=== PATIENT | female | born 1980 | race Caucasian/White ===

== ENCOUNTER 2016-12-23 19:17 | Emergency (ER) | payer OTHER ==
[~2016-12-23] VITALS: Ht 167.6 cm; Wt 60.0 kg
[~2016-12-23 19:17] MED LIST: CYCL-36 PO; DIPH1TAB36 PO; IBUP800T23 PO; LORA1TAB PO; NAPR500 PO; PANT20 PO; PROP40TA3 PO; REST30CA PO; SERO300T2 PO
[2016-12-23 19:18] VITALS: BP 138/73; PULSE 60; RESP 16; TEMP 97.6; O2SAT 98
--- NOTE | 2016-12-23 21:27 | PD ---
HPI Chief Complaint: Psychiatric Symptoms Time Seen by Provider: 21:27 Travel History International Travel<30 days: No Contact w/Intl Traveler<30days: No Traveled to known affect area: No History of Present Illness HPI 36-year-old female with a history of bipolar disorder and borderline personality disorder presents to the emergency department for evaluation of suicidal ideations. The patient states that for the past 5 days her mood has been unstable and she has had multiple instances of contemplating suicide. States that 5 days ago she had planned to hang herself using an extension cord in her garage but was interrupted by neighbors. States that 3 weeks ago she and her psychiatrist changed her medication which is what has caused her mood to be imbalanced. States that she would like to be changed back to her previous medications or to something new that will work for her. She denies any ingestion of substances in an attempt to harm herself. Denies any drug use. Denies any alcohol use. Denies any medical complaints. Denies chest pain , shortness of breath, abdominal pain, nausea, vomiting, diarrhea. Denies , last menstrual period 1 week ago. No other complaints. PFSH Past Medical History Arthritis: No Asthma: No Autoimmune Disease: No Blood Disorders: No Bipolar Disorder: Yes Anxiety: Yes Depression: Yes Heart Rhythm Problems: Yes (SVT) Cancer: No Cardiovascular Problems: Yes (SVT) High Cholesterol: No Chemotherapy: No Chest Pain: No Congestive Heart Failure: No COPD: No Cerebrovascular Accident: No Diabetes: No Diminished Hearing: No Endocrine: Yes (pcos) Gastrointestinal Disorders: Yes (anorexia) Glaucoma: No Genitourinary: No Headaches: Yes Hypertension: No Kidney Stones: No Musculoskeletal: No Neurologic: No Psychiatric: Yes Reproductive: No Respiratory: No Myocardial Infarction: No Radiation Therapy: No Renal Failure: No Seizures: No Sickle Cell Disease: No Sleep Apnea: No Thyroid Disease: No ?: Not : 0 Past Surgical History Abdominal Surgery: No AICD: No Cardiac Surgery: No Ear Surgery: No Endocrine Surgery: No Eye Surgery: No Genitourinary Surgery: No Gynecologic Surgery: No Neurologic Surgery: No Oral Surgery: No Pacemaker: No Thoracic Surgery: No Other Surgery: Yes Social History Alcohol Use: No Tobacco Use: No Substance Use: No Allergies-Medications (Allergen,Severity, Reaction): Coded Allergies: Abilify (Verified Allergy, Severe, Confusion, 12/23/16) Geodon (Verified Allergy, Severe, Rash, 12/23/16) Morphine (Verified Allergy, Severe, "ILL", 12/23/16) Opiate Agonists (Narcotics) (Verified Allergy, Severe, 12/23/16) SSRI-Serotonin Reuptake Inhib (Verified Allergy, Severe, 12/23/16) Sulfa (Verified Allergy, Severe, RASH-HIVES, 12/23/16) Reported Meds & Prescriptions Reported Meds & Active Scripts Active Reported Seroquel (Quetiapine Fumarate) 400 Mg Tab 400 Mg PO HS Propranolol (Propranolol HCl) 40 Mg Tab 40 Mg PO HS Flexeril (Cyclobenzaprine HCl) 10 Mg Tab 10 Mg PO HS Adderall (Amphetamine-Dextroamphetamine) 7.5 Mg Tab 7.5 Mg PO BID Avoid late evening doses. Space doses at least 4 to 6 hours if more than once/day dosing. Review of Systems Except as stated in HPI: all other systems reviewed are Neg Physical Exam Narrative GENERAL: Well-nourished and well-developed pleasant female patient in no acute distress who is nontoxic appearing. SKIN: Warm and dry. HEAD: Normocephalic and atraumatic. EYES: No injection, drainage, or hyphema noted. PERRLA. EOMI. ENT: No nasal drainage noted. Oropharynx is clear. NECK: Supple and the trachea is midline. CARDIOVASCULAR: Regular rate and rhythm. RESPIRATORY: Breath sounds are equal bilaterally with no accessory muscle use, wheezing, rhonchi, or crackles. GASTROINTESTINAL: Abdomen is soft, non-tender, and nondistended. MUSCULOSKELETAL: No obvious deformities, swelling, cyanosis, or ecchymosis is present throughout the upper and lower extremities. Patient has full range of motion without any signs of neurovascular compromise. NEUROLOGICAL: Awake, alert, and oriented. Normal speech and gait. Cranial nerves are grossly intact. Data Data Last Documented VS Vital Signs Date Time Temp Pulse Resp B/P Pulse Ox O2 Delivery O2 Flow Rate FiO2 12/23/16 19:18 97.6 60 16 138/73 98 Orders Complete Blood Count With Diff (12/23/16 21:26) Comprehensive Metabolic Panel (12/23/16 21:26) Ed Urine Pregnancytest Poc (12/23/16 21:26) Drug Screen, Random Urine (12/23/16 21:26) Alcohol (Ethanol) (12/23/16 21:26) Olanzapine Inj (Zyprexa Inj) (12/23/16 21:30) Psych Screen (12/23/16 21:26) Labs Laboratory Tests Test 12/23/16 21:45 White Blood Count 7.2 TH/MM3 Red Blood Count 3.83 MIL/MM3 Hemoglobin 13.0 GM/DL Hematocrit 37.9 % Mean Corpuscular Volume 98.9 FL Mean Corpuscular Hemoglobin 33.9 PG Mean Corpuscular Hemoglobin 34.2 % Concent Red Cell Distribution Width 13.9 % Platelet Count 336 TH/MM3 Mean Platelet Volume 7.6 FL Neutrophils (%) (Auto) 55.8 % Lymphocytes (%) (Auto) 35.2 % Monocytes (%) (Auto) 5.5 % Eosinophils (%) (Auto) 2.6 % Basophils (%) (Auto) 0.9 % Neutrophils # (Auto) 4.0 TH/MM3 Lymphocytes # (Auto) 2.5 TH/MM3 Monocytes # (Auto) 0.4 TH/MM3 Eosinophils # (Auto) 0.2 TH/MM3 Basophils # (Auto) 0.1 TH/MM3 CBC Comment DIFF FINAL Differential Comment Sodium Level 140 MEQ/L Potassium Level 3.8 MEQ/L Chloride Level 103 MEQ/L Carbon Dioxide Level 30.1 MEQ/L Anion Gap 7 MEQ/L Blood Urea Nitrogen 10 MG/DL Creatinine 0.65 MG/DL Estimat Glomerular Filtration 104 ML/MIN Rate Random Glucose 76 MG/DL Calcium Level 9.0 MG/DL Total Bilirubin 0.4 MG/DL Aspartate Amino Transf 32 U/L (AST/SGOT) Alanine Aminotransferase 29 U/L (ALT/SGPT) Alkaline Phosphatase 72 U/L Total Protein 8.0 GM/DL Albumin 4.4 GM/DL Urine Opiates Screen NEG Urine Barbiturates Screen NEG Urine Amphetamines Screen POS Urine Benzodiazepines Screen NEG Urine Cocaine Screen NEG Urine Cannabinoids Screen NEG Ethyl Alcohol Level LESS THAN 3 MG/DL MDM Medical Decision Making Medical Screen Exam Complete: Yes Emergency Medical Condition: Yes Differential Diagnosis Differential: Depression versus adjustment reaction versus anxiety versus PTSD versus psychosis NOS versus mood disorder NOS versus substance induced mood disorder versus ODD versus adjustment reaction versus schizophrenia versus bipolar disorder versus schizoaffective versus electrolyte abnormality versus dementia versus malingering. Narrative Course Patient presents voluntarily for mood imbalances and suicidal ideations. Physical examination and vital signs are essentially unremarkable. Patient has no medical complaints to report. Psych screen has been ordered. The laboratory results are unremarkable. The patient is medically cleared for psychiatric evaluation and disposition. At this time the patient is voluntarily going to stay here and wait to see the psychiatrist. If at any point she decides to leave she should be placed under Adams act. The patient knows that this will happen and she is agreeable to stay voluntarily. Diagnosis Primary Impression: Suicidal ideations Additional Impression: Mood disorder Chelsy Adkins Dec 23, 2016 21:27
[2016-12-23] MEDS ORDERED: OLANZapine IM 10 MG VIAL IM ONE (21:30)
[2016-12-23] MEDS ORDERED: PROP40TA3 PO (21:45)
[2016-12-23] MEDS ORDERED: SERO400T PO (21:45)
[2016-12-23] MEDS ORDERED: CYCL1TAB29 PO (21:45)
[2016-12-23] MEDS ORDERED: AMPH1TAB40 PO (21:45)
[2016-12-23 22:01] LABS: BASOPHIL # 0.1 TH/MM3 (0-0.2); BASOPHIL % 0.9 % (0.0-2.0); EOSINOPHIL # 0.2 TH/MM3 (0-0.4); EOSINOPHIL % 2.6 % (0.0-4.0); HEMATOCRIT 37.9 % (35.0-46.0); HEMO FLAGS DIFF FINAL; LYMPH % 35.2 % (9.0-44.0); LYMPHOCYTE # 2.5 TH/MM3 (1.0-4.8); MEAN CELL VOLUME 98.9 FL (80.0-100.0); MEAN CORPUSCULAR HEMOGLOBIN 33.9 PG (27.0-34.0); MEAN CORPUSCULAR HGB CONC 34.2 % (32.0-36.0); MONO % 5.5 % (0.0-8.0); NEUT % 55.8 % (16.0-70.0); PLATELET COUNT 336 TH/MM3 (150-450); RED BLOOD COUNT 3.83 MIL/MM3 (4.00-5.30); RED CELL DISTRIBUTION WIDTH 13.9 % (11.6-17.2); WHITE BLOOD COUNT 7.2 TH/MM3 (4.0-11.0)
[2016-12-23 22:09] LABS: AMPHETAMINE, URINE POS (NEG); BARBITURATES, URINE NEG (NEG); COCAINE, URINE NEG (NEG)
[2016-12-23 22:29] LABS: ANION GAP 7 MEQ/L (5-15); AST (GOT) 32 U/L (15-37); BICARBONATE 30.1 MEQ/L (21.0-32.0); BLOOD UREA NITROGEN 10 MG/DL (7-18); CHLORIDE 103 MEQ/L (98-107); GLOMERULAR FILTRATION RATE 104 ML/MIN (>89); POTASSIUM 3.8 MEQ/L (3.5-5.1); SODIUM (NA) 140 MEQ/L (136-145)
[2016-12-23 22:32] LABS: ALKALINE PHOSPHATASE 72 U/L (45-117); ALT (GPT) 29 U/L (10-53); TOTAL BILIRUBIN ADULT 0.4 MG/DL (0.2-1.0)
[2016-12-24] VITALS: BP 130/68; PULSE 66; RESP 16; O2SAT 98
[2016-12-24 06:30] VITALS: BP 98/56; PULSE 88; PULSE 99; RESP 16; RESP 19; O2SAT 99
[2016-12-24] MEDS ORDERED: ACETAMINOPHEN 325 MG TAB PO ONE (08:45)
[2016-12-24] MEDS ORDERED: OLANZapine 10 MG TAB PO ONE (12:15)
[2016-12-24 14:20] VITALS: BP 107/64; PULSE 108; RESP 18; O2SAT 99
[2016-12-24] MEDS ORDERED: METO100T PO (14:37)
[2016-12-24] MEDS ORDERED: ADDE30XR PO (14:39)
[2016-12-24] MEDS ORDERED: SERO100T PO (14:41)
[2016-12-24] MEDS ORDERED: METOPROLOL TARTRATE 50 MG TAB PO ONE (17:15)
== END 2016-12-24 18:53 | disposition home or self-care (01) ==
LOC: NEPA 19:17 → NEPJ 12-24 18:53
DX: R45.851 Suicidal ideations (principal); F39 Unspecified mood [affective] disorder; Z86.59 Personal history of other mental and behavioral disorders; Z86.79 Personal history of other diseases of the circulatory system; Z87.42 Personal history of other diseases of the female genital tract; Z87.19 Personal history of other diseases of the digestive system
CPT/HCPCS: 80053; 80307; 80320; 84703; 85025; 96372

== ENCOUNTER 2017-01-17 17:32 | Observation (INO) | payer OTHER ==
[~2017-01-17] VITALS: Ht 167.6 cm; Wt 60.4 kg
[2017-01-17] VITALS (9 sets, daily range): BP systolic 91–141; BP diastolic 52–94; PULSE 65–98; RESP 14–24; TEMP 97.4–97.9; O2SAT 96–100
[~2017-01-17 17:32] MED LIST changes: +ADDE30XR PO; -CYCL-36 PO; +CYCL1TAB29 PO; -DIPH1TAB36 PO; -IBUP800T23 PO; -LORA1TAB PO; +METO100T PO; -NAPR500 PO; -PANT20 PO; -REST30CA PO; +SERO100T PO; -SERO300T2 PO
--- NOTE | 2017-01-17 18:32 | PD ---
HPI Chief Complaint: Psychiatric Symptoms Time Seen by Provider: 18:28 Travel History International Travel<30 days: No Contact w/Intl Traveler<30days: No Traveled to known affect area: No History of Present Illness HPI 36-year-old female that presents to the ED for evaluation of headache. Patient comes here voluntarily for refill of her medications. Per patient she ran out of his medications today but she feels that are not helping her. Per patient she feels very depressed and states that he. Without help she will "kill someone ". She is somewhat aggressive but we are able to redirect her. She denies any other medical problems. She does have a history of psychiatric illness in the past and has been here before for similar. She denies any medical complaints at this time. She states that she's been trying to get help for the past 3 days but "nobody will help her ". Denies any suicidal ideation but states that she will hurt someone if she doesn't get help. Symptoms appear to be severe. They seemed to have been worsening for the past couple days. PFSH Past Medical History Arthritis: No Asthma: No Autoimmune Disease: No Blood Disorders: No Bipolar Disorder: Yes Anxiety: Yes Depression: Yes Heart Rhythm Problems: Yes (SVT) Cancer: No Cardiovascular Problems: Yes (SVT) High Cholesterol: No Chemotherapy: No Chest Pain: No Congestive Heart Failure: No COPD: No Cerebrovascular Accident: No Diabetes: No Diminished Hearing: No Endocrine: Yes (pcos) Gastrointestinal Disorders: Yes (anorexia) Glaucoma: No Genitourinary: No Headaches: Yes Hypertension: No Kidney Stones: No Musculoskeletal: No Neurologic: No Psychiatric: Yes Reproductive: No Respiratory: No Immunizations Current: Yes Myocardial Infarction: No Radiation Therapy: No Renal Failure: No Seizures: No Sickle Cell Disease: No Sleep Apnea: No Thyroid Disease: No ?: Not : 0 Past Surgical History Abdominal Surgery: No AICD: No Cardiac Surgery: No Ear Surgery: No Endocrine Surgery: No Eye Surgery: No Genitourinary Surgery: No Gynecologic Surgery: No Neurologic Surgery: No Oral Surgery: No Pacemaker: No Thoracic Surgery: No Other Surgery: Yes Social History Alcohol Use: No Tobacco Use: No Substance Use: No Allergies-Medications (Allergen,Severity, Reaction): Coded Allergies: Sabrina (Verified Allergy, Severe, Confusion, 12/23/16) Geodon (Verified Allergy, Severe, Rash, 12/23/16) Morphine (Verified Allergy, Severe, "ILL", 12/23/16) Opiate Agonists (Narcotics) (Verified Allergy, Severe, 12/23/16) SSRI-Serotonin Reuptake Inhib (Verified Allergy, Severe, 12/23/16) Sulfa (Verified Allergy, Severe, RASH-HIVES, 12/23/16) Reported Meds & Prescriptions Reported Meds & Active Scripts Active Reported Metoprolol Tartrate 50 Mg Tab 50 Mg PO BID Zyprexa (Olanzapine) 10 Mg Tab 10 Mg PO HS Seroquel (Quetiapine Fumarate) 100 Mg Tab 100 Mg PO HS Adderall Xr 24 HR (Amphetamine/Dextroamphetamine) 30 Mg Cap 30 Mg PO DAILY Once daily in the morning. Propranolol (Propranolol HCl) 40 Mg Tab 40 Mg PO HS Flexeril (Cyclobenzaprine HCl) 10 Mg Tab 10 Mg PO HS Review of Systems Except as stated in HPI: all other systems reviewed are Neg Physical Exam Narrative GENERAL: SKIN: Warm and dry. HEAD: Atraumatic. Normocephalic. EYES: Pupils equal and round. No scleral icterus. No injection or drainage. ENT: No nasal bleeding or discharge. Mucous membranes pink and moist. tongue is midline, no uvula deviation. NECK: Trachea midline. No JVD. CARDIOVASCULAR: Regular rate and rhythm. No murmurs, S3, S4. RESPIRATORY: No accessory muscle use. Clear to auscultation. Breath sounds equal bilaterally. GASTROINTESTINAL: Abdomen soft, non-tender, nondistended. Hepatic and splenic margins not palpable. MUSCULOSKELETAL: Extremities without clubbing, cyanosis, or edema. No obvious deformities. Full range of motion of the upper and lower extremities bilaterally. 2+ pulses bilaterally. NEUROLOGICAL: Awake and alert. No obvious cranial nerve deficits. Motor grossly within normal limits. Five out of 5 muscle strength in the arms and legs. Normal speech. PSYCHIATRIC: Anxious and somewhat agitated mood and affect; insight and judgment questionable Data Data Last Documented VS Vital Signs Date Time Temp Pulse Resp B/P Pulse Ox O2 Delivery O2 Flow Rate FiO2 01/17/17 21:35 70 14 91/58 100 Room Air 01/17/17 18:30 97.4 Orders Complete Blood Count With Diff (01/17/17 18:08) Comprehensive Metabolic Panel (01/17/17 18:08) Psych Screen (01/17/17 18:08) Drug Screen, Random Urine (01/17/17 18:08) Olanzapine Inj (Zyprexa Inj) (01/17/17 18:45) Lorazepam Inj (Ativan Inj) (01/17/17 18:45) Restraints Violent (01/17/17 19:08) Electrocardiogram (01/17/17 19:32) Iv Access Insert/Monitor (01/17/17 19:32) Ecg Monitoring (01/17/17 19:32) Oximetry (01/17/17 19:32) Iv Access Insert/Monitor (01/17/17 20:16) Sodium Chlor 0.9% 1000 Ml Inj (Ns 1000 M (01/17/17 20:16) Sodium Chlor 0.9% 1000 Ml Inj (Ns 1000 M (01/17/17 22:00) Ed Urine Pregnancytest Poc (01/17/17 21:59) Alcohol (Ethanol) (01/17/17 21:59) Salicylates (Aspirin) (01/17/17 21:59) Tylenol (Acetaminophen) (01/17/17 21:59) Admit Order (Ed Use Only) (01/17/17 22:09) Consult Psychiatry (01/17/17 ) Labs Laboratory Tests Test 01/17/17 18:50 White Blood Count 6.7 TH/MM3 Red Blood Count 3.84 MIL/MM3 Hemoglobin 12.9 GM/DL Hematocrit 37.9 % Mean Corpuscular Volume 98.9 FL Mean Corpuscular Hemoglobin 33.7 PG Mean Corpuscular Hemoglobin 34.1 % Concent Red Cell Distribution Width 13.8 % Platelet Count 317 TH/MM3 Mean Platelet Volume 7.8 FL Neutrophils (%) (Auto) 48.3 % Lymphocytes (%) (Auto) 40.4 % Monocytes (%) (Auto) 6.8 % Eosinophils (%) (Auto) 3.8 % Basophils (%) (Auto) 0.7 % Neutrophils # (Auto) 3.2 TH/MM3 Lymphocytes # (Auto) 2.7 TH/MM3 Monocytes # (Auto) 0.5 TH/MM3 Eosinophils # (Auto) 0.3 TH/MM3 Basophils # (Auto) 0.0 TH/MM3 CBC Comment DIFF FINAL Differential Comment Sodium Level 139 MEQ/L Potassium Level 4.3 MEQ/L Chloride Level 104 MEQ/L Carbon Dioxide Level 30.4 MEQ/L Anion Gap 5 MEQ/L Blood Urea Nitrogen 10 MG/DL Creatinine 0.94 MG/DL Estimat Glomerular Filtration 68 ML/MIN Rate Random Glucose 100 MG/DL Calcium Level 9.1 MG/DL Total Bilirubin 0.2 MG/DL Aspartate Amino Transf 28 U/L (AST/SGOT) Alanine Aminotransferase 34 U/L (ALT/SGPT) Alkaline Phosphatase 68 U/L Total Protein 7.8 GM/DL Albumin 4.1 GM/DL MDM Medical Decision Making Medical Screen Exam Complete: Yes Emergency Medical Condition: Yes Medical Record Reviewed: Yes Interpretation(s) CBC & BMP Diagram 01/17/17 18:50 Differential Diagnosis Depression versus suicidal ideation versus anxiety versus adjustment disorder versus mood disorder versus bipolar disorder versus schizophrenia versus paranoid disorder versus psychosis versus substance abuse versus alcohol abuse versus alcohol induced psychosis versus homicidality addition versus cutting versus personality disorder Narrative Course 36-year-old female that presents to the ED for evaluation of psych. Patient was properly examined and was found to have signs and symptoms consistent with significant illness. Patient does appear to be very agitated. Labs were ordered. Patient was given IM medications to calm her down. Around 7:30 PM I was told by psych nurse that apparently had an incident where the patient was found to have hitting some of her medications in a septal up back on her underwear and apparently one of the techs noticed that she had this and apparently she put this in her mouth and possibly ingested some of his medications before the techs could stop her. Unclear as to how many she took. Patient had to be restrained and had to be medicated. From the type of pills he appears to this his metoprolol tartrate 50 mg which is prescribed to her. Unclear if she took any of them. Because of this recommendation is for patient to be moved from the psychiatric unit to a medical bed to get monitored for her possible overdose of metoprolol. This was discussed in my attending Dr. Andres who agrees with plan. EKG was ordered in addition to regular blood work. Labs and imaging were essentially unremarkable. Heart rate has been stable. My attending Dr. Andres spoke with poison control who recommends observation for the next 6-8 hours. If no changes patient can be cleared. This was discussed with the [facility] Dr. Garcia who agrees to admission for WITH consult to psychiatry. Diagnosis Primary Impression: Mood disorder Additional Impression: Suicide attempt by beta [place] overdose Qualified Code: T44.7X2A - Suicide attempt by beta [place] overdose, initial encounter Suhail Welch Jan 17, 2017 18:32
[2017-01-17] MEDS ORDERED: LORazepam 2 MG/ML VIAL IM ONE (18:45)
[2017-01-17] MEDS ORDERED: OLANZapine IM 10 MG VIAL IM ONE (18:45)
[2017-01-17 19:22] LABS: AUTOMATED NEUTROPHIL # 3.2 TH/MM3 (1.8-7.7); BASOPHIL % 0.7 % (0.0-2.0); EOSINOPHIL # 0.3 TH/MM3 (0-0.4); EOSINOPHIL % 3.8 % (0.0-4.0); HEMATOCRIT 37.9 % (35.0-46.0); HEMO FLAGS DIFF FINAL; LYMPH % 40.4 % (9.0-44.0); LYMPHOCYTE # 2.7 TH/MM3 (1.0-4.8); MEAN CELL VOLUME 98.9 FL (80.0-100.0); MEAN CORPUSCULAR HEMOGLOBIN 33.7 PG (27.0-34.0); MEAN CORPUSCULAR HGB CONC 34.1 % (32.0-36.0); MONO % 6.8 % (0.0-8.0); NEUT % 48.3 % (16.0-70.0); PLATELET COUNT 317 TH/MM3 (150-450); RED BLOOD COUNT 3.84 MIL/MM3 (4.00-5.30); RED CELL DISTRIBUTION WIDTH 13.8 % (11.6-17.2); WHITE BLOOD COUNT 6.7 TH/MM3 (4.0-11.0)
[2017-01-17] MEDS ORDERED: ZYPR10TA PO (19:24)
[2017-01-17 19:40] LABS: ANION GAP 5 MEQ/L (5-15); AST (GOT) 28 U/L (15-37); BICARBONATE 30.4 MEQ/L (21.0-32.0); BLOOD UREA NITROGEN 10 MG/DL (7-18); CHLORIDE 104 MEQ/L (98-107); GLOMERULAR FILTRATION RATE 68 ML/MIN (>89); POTASSIUM 4.3 MEQ/L (3.5-5.1); SODIUM (NA) 139 MEQ/L (136-145)
[2017-01-17 19:44] LABS: ALKALINE PHOSPHATASE 68 U/L (45-117); ALT (GPT) 34 U/L (10-53); TOTAL BILIRUBIN ADULT 0.2 MG/DL (0.2-1.0)
[2017-01-17] MEDS ORDERED: SODIUM CHLOR 0.9% 1000 ML INJ 1,000 ML IV ONE (20:16)
--- NOTE | 2017-01-17 21:43 | PD ---
Physical Exam Narrative Patient was seen and examined with my therapist's assistant. Patient took a mouth full of metoprolol, up to 35 tablets of metoprolol 50 mg each tablet at the round 1914 p.m. Data Data Last Documented VS Vital Signs Date Time Temp Pulse Resp B/P Pulse Ox O2 Delivery O2 Flow Rate FiO2 01/17/17 21:35 70 14 91/58 100 Room Air 01/17/17 18:30 97.4 Orders Complete Blood Count With Diff (01/17/17 18:08) Comprehensive Metabolic Panel (01/17/17 18:08) Psych Screen (01/17/17 18:08) Drug Screen, Random Urine (01/17/17 18:08) Olanzapine Inj (Zyprexa Inj) (01/17/17 18:45) Lorazepam Inj (Ativan Inj) (01/17/17 18:45) Restraints Violent (01/17/17 19:08) Electrocardiogram (01/17/17 19:32) Iv Access Insert/Monitor (01/17/17 19:32) Ecg Monitoring (01/17/17 19:32) Oximetry (01/17/17 19:32) Iv Access Insert/Monitor (01/17/17 20:16) Sodium Chlor 0.9% 1000 Ml Inj (Ns 1000 M (01/17/17 20:16) Labs Laboratory Tests Test 01/17/17 18:50 White Blood Count 6.7 TH/MM3 Red Blood Count 3.84 MIL/MM3 Hemoglobin 12.9 GM/DL Hematocrit 37.9 % Mean Corpuscular Volume 98.9 FL Mean Corpuscular Hemoglobin 33.7 PG Mean Corpuscular Hemoglobin 34.1 % Concent Red Cell Distribution Width 13.8 % Platelet Count 317 TH/MM3 Mean Platelet Volume 7.8 FL Neutrophils (%) (Auto) 48.3 % Lymphocytes (%) (Auto) 40.4 % Monocytes (%) (Auto) 6.8 % Eosinophils (%) (Auto) 3.8 % Basophils (%) (Auto) 0.7 % Neutrophils # (Auto) 3.2 TH/MM3 Lymphocytes # (Auto) 2.7 TH/MM3 Monocytes # (Auto) 0.5 TH/MM3 Eosinophils # (Auto) 0.3 TH/MM3 Basophils # (Auto) 0.0 TH/MM3 CBC Comment DIFF FINAL Differential Comment Sodium Level 139 MEQ/L Potassium Level 4.3 MEQ/L Chloride Level 104 MEQ/L Carbon Dioxide Level 30.4 MEQ/L Anion Gap 5 MEQ/L Blood Urea Nitrogen 10 MG/DL Creatinine 0.94 MG/DL Estimat Glomerular Filtration 68 ML/MIN Rate Random Glucose 100 MG/DL Calcium Level 9.1 MG/DL Total Bilirubin 0.2 MG/DL Aspartate Amino Transf 28 U/L (AST/SGOT) Alanine Aminotransferase 34 U/L (ALT/SGPT) Alkaline Phosphatase 68 U/L Total Protein 7.8 GM/DL Albumin 4.1 GM/DL MDM Supervised Visit with INOCENCIO: Yes Narrative Course I spoke with poison control at 21:40 PM. Advised IV fluids and observation. Atropine and glucagon as needed. Diagnosis Primary Impression: Mood disorder Additional Impression: Suicide attempt by beta [place] overdose Qualified Code: T44.7X2A - Suicide attempt by beta [place] overdose, initial encounter Shayan Andres MD Jan 17, 2017 21:43
[2017-01-17] MEDS ORDERED: METO50TA PO (21:51)
[2017-01-17] MEDS ORDERED: SODIUM CHLOR 0.9% 1000 ML INJ 1,000 ML IV SCH (22:00)
[2017-01-17 23:06] LABS: ACETAMINOPHEN LESS THAN 2.0 MCG/ML (10.0-30.0)
[2017-01-17] MEDS ORDERED: SODIUM CHLOR 0.45% 1000 ML INJ 1,000 ML IV SCH (23:18)
--- NOTE | 2017-01-17 23:18 | HHI.HP ---
HPI Service [facility] Hospitalists Primary Care Physician Liya Waters MD Admission Diagnosis metoprolol overdose, suicidal, mood disorder Chief Complaint: possibly took overdose metoprolol Travel History International Travel<30 Days: No Contact w/Intl Traveler <30 Da: No Traveled to Known Affected Are: No History of Present Illness 36-year-old female that presents to the ED for evaluation of headache. Patient comes here voluntarily for refill of her medications. Per patient she ran out of his medications today but she feels that are not helping her. Per patient she feels very depressed and states that he. Without help she will "kill someone ". She is somewhat aggressive but we are able to redirect her. She denies any other medical problems. She does have a history of psychiatric illness in the past and has been here before for similar. She denies any medical complaints at this time. She states that she's been trying to get help for the past 3 days but "nobody will help her ". Denies any suicidal ideation but states that she will hurt someone if she doesn't get help. Symptoms appear to be severe. They seemed to have been worsening for the past couple She stated she took many of her metoprolol which she has for SVT. Case discussed with poison control recomend observation and IV fluid. Will also get Psy consult. Review of Systems ROS Limitations: Altered Mental Status Psychiatric: COMPLAINS OF: Anxiety, Agitation, Suicidal Ideation Past Family Social History Past Medical History ADD,PSY disorder,SVT Reported Medications Metoprolol Tartrate 50 Mg Tab 50 Mg PO BID Zyprexa (Olanzapine) 10 Mg Tab 10 Mg PO HS Seroquel (Quetiapine Fumarate) 100 Mg Tab 100 Mg PO HS Adderall Xr 24 HR (Amphetamine/Dextroamphetamine) 30 Mg Cap 30 Mg PO DAILY Once daily in the morning. Propranolol (Propranolol HCl) 40 Mg Tab 40 Mg PO HS Flexeril (Cyclobenzaprine HCl) 10 Mg Tab 10 Mg PO HS Allergies: Coded Allergies: Abilify (Verified Allergy, Severe, Confusion, 12/23/16) Geodon (Verified Allergy, Severe, Rash, 12/23/16) Morphine (Verified Allergy, Severe, "ILL", 12/23/16) Opiate Agonists (Narcotics) (Verified Allergy, Severe, 12/23/16) SSRI-Serotonin Reuptake Inhib (Verified Allergy, Severe, 12/23/16) Sulfa (Verified Allergy, Severe, RASH-HIVES, 12/23/16) Social History unable to provide information Physical Exam Vital Signs Vital Signs Date Time Temp Pulse Resp B/P Pulse Ox O2 Delivery O2 Flow Rate FiO2 01/17/17 22:20 75 14 95/53 97 Room Air 01/17/17 21:35 70 14 91/58 100 Room Air 01/17/17 21:14 65 14 101/52 100 Room Air 01/17/17 20:51 73 18 104/60 01/17/17 20:16 75 18 97/53 01/17/17 19:47 88 20 101/52 100 01/17/17 18:40 98 24 01/17/17 18:30 97.4 98 24 141/94 98 01/17/17 17:33 97.9 91 20 139/69 99 Room Air Physical Exam GENERAL: This is a well-nourished, well-developed patient, in no apparent distress. SKIN: No rashes, ecchymoses or lesions. Cool and dry. HEAD: Atraumatic. Normocephalic. No temporal or scalp tenderness. EYES: Pupils equal round and reactive. Extraocular motions intact. No scleral icterus. No injection or drainage. ENT: Nose without bleeding, purulent drainage or septal hematoma. Throat without erythema, tonsillar hypertrophy or exudate. Uvula midline. Airway patent. NECK: Trachea midline. No JVD or lymphadenopathy. Supple, nontender, no meningeal signs. CARDIOVASCULAR: Regular rate and rhythm without murmurs, gallops, or rubs. RESPIRATORY: Clear to auscultation. Breath sounds equal bilaterally. No wheezes , rales, or rhonchi. GASTROINTESTINAL: Abdomen soft, non-tender, nondistended. No hepato-splenomegaly , or palpable masses. No guarding. MUSCULOSKELETAL: Extremities without clubbing, cyanosis, or edema. No joint tenderness, effusion, or edema noted. No calf tenderness. Negative Homans sign bilaterally. NEUROLOGICAL: Asleep. Cranial nerves II through XII intact. Motor and sensory grossly within normal limits. Five out of 5 muscle strength in all muscle groups. Normal speech. Laboratory Laboratory Tests Test 01/17/17 18:50 White Blood Count 6.7 Red Blood Count 3.84 Hemoglobin 12.9 Hematocrit 37.9 Mean Corpuscular Volume 98.9 Mean Corpuscular Hemoglobin 33.7 Mean Corpuscular Hemoglobin 34.1 Concent Red Cell Distribution Width 13.8 Platelet Count 317 Mean Platelet Volume 7.8 Neutrophils (%) (Auto) 48.3 Lymphocytes (%) (Auto) 40.4 Monocytes (%) (Auto) 6.8 Eosinophils (%) (Auto) 3.8 Basophils (%) (Auto) 0.7 Neutrophils # (Auto) 3.2 Lymphocytes # (Auto) 2.7 Monocytes # (Auto) 0.5 Eosinophils # (Auto) 0.3 Basophils # (Auto) 0.0 CBC Comment DIFF FINAL Differential Comment Sodium Level 139 Potassium Level 4.3 Chloride Level 104 Carbon Dioxide Level 30.4 Anion Gap 5 Blood Urea Nitrogen 10 Creatinine 0.94 Estimat Glomerular Filtration 68 Rate Random Glucose 100 Calcium Level 9.1 Total Bilirubin 0.2 Aspartate Amino Transf 28 (AST/SGOT) Alanine Aminotransferase 34 (ALT/SGPT) Alkaline Phosphatase 68 Total Protein 7.8 Albumin 4.1 Result Diagram: 01/17/17184901/17/171849 Course in er received IV fluid Assessment and Plan Problem List: (1) Suicide attempt by beta [place] overdose Status: Acute Plan: may have taken several metoprolol poison control recommends IV fluid patient was agitated and received zyprexa and ativan and is sleeping (2) SVT (supraventricular tachycardia) Status: Chronic Plan: hold meds b blockers for now monitor heart rate Assessment and Plan as above Code Status full Discussed Condition With er physician patient sleeping with sitter in room Problem Qualifiers (1) Suicide attempt by beta [place] overdose: Qualified Code: T44.7X2A - Suicide attempt by beta [place] overdose, initial encounter Amrik Garcia MD Jan 17, 2017 23:18
[2017-01-17] MEDS ORDERED: NALOXONE HCL 0.4 MG/ML AMP IV PRN (23:30)
[2017-01-17] MEDS ORDERED: SODIUM CHLORIDE 0.9% FLUSH 10 ML FLUSH IV FLUSH PRN (23:30)
[2017-01-18 00:30] VITALS: BP 100/58; PULSE 70; RESP 16; TEMP 97.7; O2SAT 96
[2017-01-18] MEDS ORDERED: LORazepam 1 MG TAB PO ONE (02:30)
[2017-01-18 08:00] VITALS: BP 104/57; PULSE 72; RESP 18; TEMP 97.9; O2SAT 95
[2017-01-18] MEDS ORDERED: QUEtiapine FUMARATE 100 MG TAB PO ONE (09:00)
[2017-01-18] MEDS ORDERED: SODIUM CHLORIDE 0.9% FLUSH 10 ML FLUSH IV FLUSH SCH (09:00)
[2017-01-18] MEDS ORDERED: DEXTROAMPHETAMINE/AMPHETAMINE XR 30 MG CAP PO SCH (09:00)
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
--- NOTE | 2017-01-18 10:11 | HHI.PR ---
Subjective Remarks pt demanding to go home psychiatrist agrees with her d/c. Objective Vitals lying in bed oriented cooperative with me. Vital Signs Date Time Temp Pulse Resp B/P Pulse Ox O2 Delivery O2 Flow Rate FiO2 01/18/17 08:00 97.9 72 18 104/57 95 01/18/17 00:31 Room Air 01/18/17 00:30 97.7 70 16 100/58 96 01/17/17 23:55 73 14 95/54 96 Room Air 01/17/17 22:20 75 14 95/53 97 Room Air 01/17/17 21:35 70 14 91/58 100 Room Air 01/17/17 21:14 65 14 101/52 100 Room Air 01/17/17 20:51 73 18 104/60 01/17/17 20:16 75 18 97/53 01/17/17 19:47 88 20 101/52 100 01/17/17 18:40 98 24 01/17/17 18:30 97.4 98 24 141/94 98 01/17/17 17:33 97.9 91 20 139/69 99 Room Air 01/17/17 01/17/17 01/18/17 15:00 23:00 07:00 Intake Total 240 ml Output Total 800 ml Balance -560 ml Intake Oral 240 ml Output Urine Total 800 ml # Bowel Movements 0 Result Diagram: 01/17/17184901/17/171849 A/P Problem List: (1) Mood disorder Status: Acute Plan: I am told by psychiatrist she has borderline personality was apparently seeking medications last night in ED. also report that she had medication hidden in her underwear possibly metoprolol and took those in ED. She was observed overnight after being restrained. Long discussion with Dr Patterson who saw her and also spoke with her regular psychiatrist. no plan to give this pt any medication prescriptions as she is very manipulative. Pt says she will continue to take both metoprolol and propranolol as prescribed by dr Borrego and Dr Hernández. She says they are aware and ok with the combination. d/c home. . (2) SVT (supraventricular tachycardia) Status: Chronic Plan: see above Gerry Paulino MD Jan 18, 2017 10:11
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
--- NOTE | 2017-01-18 16:28 | EKG ---
Date Performed: 01/17/2017 Time Performed: 21:25:57 PTAGE: 36 years EKG: SINUS BRADYCARDIA Since previous tracing, no significant change noted BORDERLINE ECG PREVIOUS TRACING : 08/25/2014 16.41 DOCTOR: Balwinder Castillo Interpretating Date/Time 01/18/2017 16:26:55
--- NOTE | 2017-01-18 16:28 | EKG ---
Date Performed: 01/18/2017 Time Performed: 04:03:24 PTAGE: 36 years EKG: Sinus rhythm Since previous tracing, no significant change noted Normal ECG PREVIOUS TRACING : 08/25/2014 16.41 DOCTOR: Balwinder Castillo Interpretating Date/Time 01/18/2017 16:26:18
== END 2017-01-18 10:38 | disposition home or self-care (01) ==
LOC: NEPJ 17:32 → NEDA 22:12 → N04B 01-18 00:39
PROVIDERS: ADMIT Hospitalist; ATTEND Hospitalist
DX: T44.7X2A Poisoning by beta-adrenoreceptor antagonists, intentional self-harm, initial encounter (principal); I47.1 Supraventricular tachycardia; F43.10 Post-traumatic stress disorder, unspecified; F31.9 Bipolar disorder, unspecified; R63.0 Anorexia; R51 Headache; R45.1 Restlessness and agitation; F90.9 Attention-deficit hyperactivity disorder, unspecified type; F63.9 Impulse disorder, unspecified; F60.3 Borderline personality disorder; Z86.59 Personal history of other mental and behavioral disorders
CPT/HCPCS: 80053; 80307; 85025; 93005; 96372; 99285; G0378; J7030

== ENCOUNTER 2017-01-20 16:31 | Observation (INO) | payer OTHER ==
[~2017-01-20] VITALS: Ht 167.6 cm; Wt 75.0 kg
[~2017-01-20 16:31] MED LIST changes: -METO100T PO; +METO50TA PO; +ZYPR10TA PO
[2017-01-20 16:35] VITALS: BP 95/56; PULSE 81; RESP 13; O2SAT 93
[2017-01-20] MEDS ORDERED: SODIUM CHLORIDE 0.9% FLUSH 10 ML FLUSH IVF PRN (16:45)
[2017-01-20] MEDS ORDERED: SODIUM CHLOR 0.9% 1000 ML INJ 1,000 ML IV ONE ×2 (16:45→21:30)
[2017-01-20 16:49] VITALS: BP 95/56; PULSE 85; RESP 20; O2SAT 100
[2017-01-20 17:15] LABS: BLOOD GAS BASE EXCESS -0.5 mmol/L (-2-2); BLOOD GAS CARBOXYHEMOGLOBIN 7.5 % (0-4); BLOOD GAS HCO3 24 mmol/L (22-26); BLOOD GAS METHEMOGLOBIN 1.6 % (0-2); BLOOD GAS O2 HGB SATURATION 90 % (90-100); BLOOD GAS OXYGEN CONTENT 16.1 Vol % (12.0-20.0); BLOOD GAS PCO2 38 mmHg (38-42); BLOOD GAS PO2 131 mmHg (61-120); BLOOD GAS TOTAL HGB 12.6 G/DL (12.0-16.0); TEMP CORR TO 98.6
[2017-01-20 17:16] LABS: CRITICAL VALUE YES; DRAW SITE RT RADIAL; FIO2 28 %; LITER FLOW 2 L/M; NUMBER OF ARTERIAL PUNCTURES 1; OXYGEN DEVICE NASAL CANNULA; STAT YES; ULNAR PULSE PRESENT
--- NOTE | 2017-01-20 17:20 | PD ---
HPI Chief Complaint: OD/ Ingestion Time Seen by Provider: 16:45 Travel History International Travel<30 days: No Contact w/Intl Traveler<30days: No Traveled to known affect area: No History of Present Illness HPI Patient is a 36-year-old female brought into the emergency department by EMS after tented overdose. Patient was found sitting in her car with a hose from the tailpipe into the car with the window sealed off. Patient states that she took a handful of Benadryl, a handful of Tylenol PM, and most of her trazodone 100 mg prescription. Patient missed to attempting suicide, she reports a history of attempted suicide most recently 2 days ago. She denies any chest pain, shortness of breath, nausea, vomiting, abdominal pain this time. PFSH Past Medical History Arthritis: No Asthma: No Autoimmune Disease: No Blood Disorders: No Bipolar Disorder: Yes (MANIC) Anxiety: Yes Depression: Yes Heart Rhythm Problems: Yes (SVT) Cancer: No Cardiovascular Problems: Yes (SVT) High Cholesterol: No Chemotherapy: No Chest Pain: No Congestive Heart Failure: No COPD: No Cerebrovascular Accident: No Diabetes: No Diminished Hearing: No Endocrine: Yes (pcos) Gastrointestinal Disorders: Yes (anorexia) Glaucoma: No Genitourinary: No Headaches: Yes Hypertension: Yes Kidney Stones: No Musculoskeletal: No Neurologic: No Psychiatric: Yes Reproductive: No Respiratory: No Immunizations Current: Yes Myocardial Infarction: No Radiation Therapy: No Renal Failure: No Seizures: No Sickle Cell Disease: No Sleep Apnea: No Thyroid Disease: No ?: Not LMP: last week : 0 Past Surgical History Abdominal Surgery: No AICD: No Cardiac Surgery: No Ear Surgery: No Endocrine Surgery: No Eye Surgery: No Genitourinary Surgery: No Gynecologic Surgery: No Neurologic Surgery: No Oral Surgery: No Pacemaker: No Thoracic Surgery: No Other Surgery: Yes Social History Alcohol Use: No Tobacco Use: No Substance Use: No Allergies-Medications (Allergen,Severity, Reaction): Coded Allergies: Abilify (Verified Allergy, Severe, Confusion, 01/20/17) Geodon (Verified Allergy, Severe, Rash, 01/20/17) Morphine (Verified Allergy, Severe, "ILL", 01/20/17) Opiate Agonists (Narcotics) (Verified Allergy, Severe, 01/20/17) SSRI-Serotonin Reuptake Inhib (Verified Allergy, Severe, 01/20/17) Sulfa (Verified Allergy, Severe, RASH-HIVES, 01/20/17) Reported Meds & Prescriptions Reported Meds & Active Scripts Active Reported Metoprolol Tartrate 50 Mg Tab 50 Mg PO BID Zyprexa (Olanzapine) 10 Mg Tab 10 Mg PO HS Seroquel (Quetiapine Fumarate) 100 Mg Tab 100 Mg PO HS Adderall Xr 24 HR (Amphetamine/Dextroamphetamine) 30 Mg Cap 30 Mg PO DAILY Once daily in the morning. Propranolol (Propranolol HCl) 40 Mg Tab 40 Mg PO HS Flexeril (Cyclobenzaprine HCl) 10 Mg Tab 10 Mg PO HS Review of Systems ROS Limitations: Clinical Condition Except as stated in HPI: all other systems reviewed are Neg Cardiovascular: No: Chest Pain or Discomfort Respiratory: No: Shortness of Breath Gastrointestinal: No: Nausea, Abdominal Pain Psychiatric: Positive: Depression, Suicidal Ideations, Substance Abuse Physical Exam Narrative GENERAL: Thin, well-developed, female. Drowsy, in no acute distress. SKIN: Focused skin assessment warm/dry. HEAD: Atraumatic. Normocephalic. EYES: Pupils equal and round. No scleral icterus. No injection or drainage. ENT: No nasal bleeding or discharge. Mucous membranes pink and moist. NECK: Trachea midline. No JVD. CARDIOVASCULAR: Regular rate and rhythm. No murmur appreciated. RESPIRATORY: No accessory muscle use. Clear to auscultation. Breath sounds equal bilaterally. GASTROINTESTINAL: Abdomen soft, non-tender, nondistended. Hepatic and splenic margins not palpable. MUSCULOSKELETAL: No obvious deformities. No clubbing. No cyanosis. No edema. NEUROLOGICAL: Drowsy, arousable, answers questions appropriately.. No obvious cranial nerve deficits. Motor grossly within normal limits. Normal speech. PSYCHIATRIC: Depressed mood and affect; insight and judgment. Impaired. Data Data Last Documented VS Vital Signs Date Time Temp Pulse Resp B/P Pulse Ox O2 Delivery O2 Flow Rate FiO2 01/20/17 19:00 82 15 106/65 100 Nasal Cannula 2 01/20/17 18:00 100 Orders Complete Blood Count With Diff (01/20/17 16:45) Comprehensive Metabolic Panel (01/20/17 16:45) Prothrombin Time / Inr (Pt) (01/20/17 16:45) Act Partial Throm Time (Ptt) (01/20/17 16:45) Osmolality,Serum (01/20/17 16:45) Arterial Blood Gas (Abg) (01/20/17 16:45) Blood Glucose (01/20/17 16:45) Iv Access Insert/Monitor (01/20/17 16:45) Ecg Monitoring (01/20/17 16:45) Oximetry (01/20/17 16:45) Psych Screen (01/20/17 16:45) Sodium Chloride 0.9% Flush (Ns Flush) (01/20/17 16:45) Sodium Chlor 0.9% 1000 Ml Inj (Ns 1000 M (01/20/17 16:45) Call Poison Control (01/20/17 16:45) Drug Screen, Random Urine (01/20/17 16:45) Alcohol (Ethanol) (01/20/17 16:45) Salicylates (Aspirin) (01/20/17 16:45) Tylenol (Acetaminophen) (01/20/17 16:45) Blood Gas Carboxyhemoglobin (01/20/17 16:54) Electrocardiogram (01/20/17 18:45) Electrocardiogram (01/20/17 20:45) Resp Oxygen Non Rebreathe Mask (01/20/17 ) Tylenol (Acetaminophen) (01/20/17 20:45) Ondansetron Inj (Zofran Inj) (01/20/17 21:00) Ondansetron Inj (Zofran Inj) (01/20/17 20:48) Sodium Chlor 0.9% 1000 Ml Inj (Ns 1000 M (01/20/17 21:30) Resp Blood Gas Carboxy Hgb (01/20/17 ) Admit Order (Ed Use Only) (01/20/17 22:33) Acetylcysteine 20% Liq (Mucomyst 20% Liq (01/20/17 22:45) Acetylcysteine 20% Liq (Mucomyst 20% Liq (01/20/17 22:45) Labs Laboratory Tests Test 01/20/17 01/20/17 01/20/17 01/20/17 16:55 17:05 19:35 20:50 Blood Gas Puncture Site RT RADIAL Blood Gas Patient Temperature 98.6 Blood Gas HCO3 24 mmol/L Blood Gas Base Excess -0.5 mmol/L Blood Gas Oxygen Saturation 90 % Arterial Blood pH 7.41 Arterial Blood Partial 38 mmHg Pressure CO2 Arterial Blood Partial 131 mmHg Pressure O2 Arterial Blood Oxygen Content 16.1 Vol % Arterial Blood 7.5 % Carboxyhemoglobin Arterial Blood Methemoglobin 1.6 % Blood Gas Hemoglobin 12.6 G/DL Oxygen Delivery Device NASAL CANNULA Blood Gas Liter Flow 2 L/M Blood Gas Inspired Oxygen 28 % White Blood Count 7.8 TH/MM3 Red Blood Count 3.71 MIL/MM3 Hemoglobin 12.2 GM/DL Hematocrit 36.8 % Mean Corpuscular Volume 99.2 FL Mean Corpuscular Hemoglobin 33.0 PG Mean Corpuscular Hemoglobin 33.3 % Concent Red Cell Distribution Width 13.4 % Platelet Count 279 TH/MM3 Mean Platelet Volume 7.6 FL Neutrophils (%) (Auto) 54.4 % Lymphocytes (%) (Auto) 35.8 % Monocytes (%) (Auto) 5.7 % Eosinophils (%) (Auto) 3.0 % Basophils (%) (Auto) 1.1 % Neutrophils # (Auto) 4.2 TH/MM3 Lymphocytes # (Auto) 2.8 TH/MM3 Monocytes # (Auto) 0.4 TH/MM3 Eosinophils # (Auto) 0.2 TH/MM3 Basophils # (Auto) 0.1 TH/MM3 CBC Comment DIFF FINAL Differential Comment Prothrombin Time 11.8 SEC Prothromb Time International 1.1 RATIO Ratio Activated Partial 24.7 SEC Thromboplast Time Sodium Level 139 MEQ/L Potassium Level 3.9 MEQ/L Chloride Level 102 MEQ/L Carbon Dioxide Level 28.6 MEQ/L Anion Gap 8 MEQ/L Blood Urea Nitrogen 8 MG/DL Creatinine 0.76 MG/DL Estimat Glomerular Filtration 87 ML/MIN Rate Random Glucose 109 MG/DL Serum Osmolality 287 MOSM/KG Calcium Level 8.9 MG/DL Total Bilirubin 0.8 MG/DL Aspartate Amino Transf 22 U/L (AST/SGOT) Alanine Aminotransferase 23 U/L (ALT/SGPT) Alkaline Phosphatase 60 U/L Total Protein 7.2 GM/DL Albumin 4.6 GM/DL Salicylates Level 3.9 MG/DL Acetaminophen Level 77.7 MCG/ML 94.9 MCG/ML Ethyl Alcohol Level LESS THAN 3 MG/DL Urine Opiates Screen NEG Urine Barbiturates Screen NEG Urine Amphetamines Screen POS Urine Benzodiazepines Screen POS Urine Cocaine Screen NEG Urine Cannabinoids Screen NEG MDM Medical Decision Making Medical Screen Exam Complete: Yes Emergency Medical Condition: Yes Interpretation(s) Laboratory Tests Test 01/20/17 01/20/17 01/20/17 01/20/17 16:55 17:05 19:35 20:50 Blood Gas Puncture Site RT RADIAL Blood Gas Patient Temperature 98.6 Blood Gas HCO3 24 mmol/L Blood Gas Base Excess -0.5 mmol/L Blood Gas Oxygen Saturation 90 % Arterial Blood pH 7.41 Arterial Blood Partial 38 mmHg Pressure CO2 Arterial Blood Partial 131 mmHg Pressure O2 Arterial Blood Oxygen Content 16.1 Vol % Arterial Blood 7.5 % Carboxyhemoglobin Arterial Blood Methemoglobin 1.6 % Blood Gas Hemoglobin 12.6 G/DL Oxygen Delivery Device NASAL CANNULA Blood Gas Liter Flow 2 L/M Blood Gas Inspired Oxygen 28 % White Blood Count 7.8 TH/MM3 Red Blood Count 3.71 MIL/MM3 Hemoglobin 12.2 GM/DL Hematocrit 36.8 % Mean Corpuscular Volume 99.2 FL Mean Corpuscular Hemoglobin 33.0 PG Mean Corpuscular Hemoglobin 33.3 % Concent Red Cell Distribution Width 13.4 % Platelet Count 279 TH/MM3 Mean Platelet Volume 7.6 FL Neutrophils (%) (Auto) 54.4 % Lymphocytes (%) (Auto) 35.8 % Monocytes (%) (Auto) 5.7 % Eosinophils (%) (Auto) 3.0 % Basophils (%) (Auto) 1.1 % Neutrophils # (Auto) 4.2 TH/MM3 Lymphocytes # (Auto) 2.8 TH/MM3 Monocytes # (Auto) 0.4 TH/MM3 Eosinophils # (Auto) 0.2 TH/MM3 Basophils # (Auto) 0.1 TH/MM3 CBC Comment DIFF FINAL Differential Comment Prothrombin Time 11.8 SEC Prothromb Time International 1.1 RATIO Ratio Activated Partial 24.7 SEC Thromboplast Time Sodium Level 139 MEQ/L Potassium Level 3.9 MEQ/L Chloride Level 102 MEQ/L Carbon Dioxide Level 28.6 MEQ/L Anion Gap 8 MEQ/L Blood Urea Nitrogen 8 MG/DL Creatinine 0.76 MG/DL Estimat Glomerular Filtration 87 ML/MIN Rate Random Glucose 109 MG/DL Serum Osmolality 287 MOSM/KG Calcium Level 8.9 MG/DL Total Bilirubin 0.8 MG/DL Aspartate Amino Transf 22 U/L (AST/SGOT) Alanine Aminotransferase 23 U/L (ALT/SGPT) Alkaline Phosphatase 60 U/L Total Protein 7.2 GM/DL Albumin 4.6 GM/DL Salicylates Level 3.9 MG/DL Acetaminophen Level 77.7 MCG/ML 94.9 MCG/ML Ethyl Alcohol Level LESS THAN 3 MG/DL Urine Opiates Screen NEG Urine Barbiturates Screen NEG Urine Amphetamines Screen POS Urine Benzodiazepines Screen POS Urine Cocaine Screen NEG Urine Cannabinoids Screen NEG Vital Signs Date Time Temp Pulse Resp B/P Pulse Ox O2 Delivery O2 Flow Rate FiO2 01/20/17 16:59 99 Non-Rebreather 100 01/20/17 16:35 81 13 95/56 93 Differential Diagnosis Suicidal ideation versus depression versus mood disorder versus substance abuse versus suicide attempt versus overdose Narrative Course Patient is a 36-year-old female that presents to the emergency department via EMS after an attempted overdose to inflict harm to herself. Overdose occurred approximately 15-20 minutes prior to arrival per EMS report. Labs, EKG ordered , patient placed on telemetry monitoring, continuous pulse oximetry, IV access was initiated by EMS. IV fluids ordered, initial EKG shows sinus rhythm with nonspecific T-wave abnormality. Poison control was contacted and recommended patient be on 100% nonrebreather, carboxyhemoglobin level obtained, EKG every 2 hours 3, a Tylenol level IV hours after initial ingestion. Orders placed. Carboxyhemoglobin level is 7.5 Chemistry reviewed and is unremarkable Serum osmolality 287 Salicylate level 3.9 Alcohol level is less than 3 Acetaminophen 77.7 initially, orders placed for the 4 hour postingestion. No emergent treatment needed at this time. Vital signs remain stable. Second EKG obtained at 1917, shows sinus rhythm with short [place] interval, QT and QTc interval unchanged from prior EKG that was obtained on arrival. 2139- third EKG performed, QT/QTc interval stable. 2044- patient complained of nausea, 4 mg Zofran IV 1 dose ordered. 2125- Repeat salicylate level is 94.9. Additional liter of normal saline ordered. Patient's vital signs remained stable, patient remains on nonrebreather at 100%. 2151 - patient awake, asking to call her sister who is her caregiver. Patient has no complaints. Patient given Gatorade to drink. Repeat carboxyhemoglobin level ordered. Repeat carboxyhemoglobin level was 0. 2230 [place] control called emergency department and stated patient needed to be started on Mucomyst protocol due to Tylenol level rising. Tylenol levels were drawn 4 hours apart however they still recommended treatment. Discussed with Dr. Leon who accepted admission on behalf of Dr. Pantoja. Mucomyst orders placed. Diagnosis Primary Impression: Suicide attempt by carbon monoxide poisoning Qualified Code: T58.92XA - Suicide attempt by carbon monoxide poisoning, initial encounter Additional Impressions: Suicide attempt by multiple drug overdose Qualified Code: T50.902A - Suicide attempt by multiple drug overdose, initial encounter Acetaminophen overdose Qualified Code: T39.1X2A - Acetaminophen overdose, intentional self-harm, initial encounter Admitting Information Admitting Physician Requests: Admit Condition: Stable Liz Meadows Jan 20, 2017 17:20
[2017-01-20 17:22] LABS: AUTOMATED NEUTROPHIL # 4.2 TH/MM3 (1.8-7.7); BASOPHIL # 0.1 TH/MM3 (0-0.2); BASOPHIL % 1.1 % (0.0-2.0); EOSINOPHIL # 0.2 TH/MM3 (0-0.4); HEMATOCRIT 36.8 % (35.0-46.0); HEMO FLAGS DIFF FINAL; LYMPH % 35.8 % (9.0-44.0); LYMPHOCYTE # 2.8 TH/MM3 (1.0-4.8); MEAN CELL VOLUME 99.2 FL (80.0-100.0); MEAN CORPUSCULAR HGB CONC 33.3 % (32.0-36.0); MONO % 5.7 % (0.0-8.0); NEUT % 54.4 % (16.0-70.0); PLATELET COUNT 279 TH/MM3 (150-450); RED BLOOD COUNT 3.71 MIL/MM3 (4.00-5.30); RED CELL DISTRIBUTION WIDTH 13.4 % (11.6-17.2); WHITE BLOOD COUNT 7.8 TH/MM3 (4.0-11.0)
[2017-01-20 17:31] LABS: APTT (PATIENT) 24.7 SEC (24.3-30.1); INTERNATIONAL NORMALIZED RATIO 1.1 RATIO; PROTHROMBIN TIME - PATIENT 11.8 SEC (9.8-11.6)
[2017-01-20 17:37] LABS: ANION GAP 8 MEQ/L (5-15); BICARBONATE 28.6 MEQ/L (21.0-32.0); BLOOD UREA NITROGEN 8 MG/DL (7-18); CHLORIDE 102 MEQ/L (98-107); GLOMERULAR FILTRATION RATE 87 ML/MIN (>89); POTASSIUM 3.9 MEQ/L (3.5-5.1); SODIUM (NA) 139 MEQ/L (136-145)
[2017-01-20 17:41] LABS: ACETAMINOPHEN 77.7 MCG/ML (10.0-30.0); ALKALINE PHOSPHATASE 60 U/L (45-117); ALT (GPT) 23 U/L (10-53); AST (GOT) 22 U/L (15-37); TOTAL BILIRUBIN ADULT 0.8 MG/DL (0.2-1.0)
[2017-01-20 18:00] VITALS: BP 101/60; PULSE 87; RESP 16; O2SAT 100
[2017-01-20 19:00] VITALS: BP 106/65; PULSE 82; RESP 15; O2SAT 100
[2017-01-20 20:03] LABS: AMPHETAMINE, URINE POS (NEG); BARBITURATES, URINE NEG (NEG); COCAINE, URINE NEG (NEG)
[2017-01-20] MEDS ORDERED: ONDANSETRON HCL 4 MG/2 ML VIAL ONE (20:48)
[2017-01-20 21:00] VITALS: BP 112/70; PULSE 84; RESP 17; O2SAT 100
[2017-01-20] MEDS ORDERED: ONDANSETRON HCL 4 MG/2 ML VIAL IV PUSH ONE (21:00)
[2017-01-20] MEDS ORDERED: ACETYLCYSTEINE 20% 6,000 MG/30 ML ORAL SOLN VIAL PO SCH (22:45)
[2017-01-20] MEDS ORDERED: ACETYLCYSTEINE 20% 6,000 MG/30 ML ORAL SOLN VIAL PO ONE (22:45)
[2017-01-20 22:47] LABS: BLOOD GAS BASE EXCESS 0.2 mmol/L (-2-2); BLOOD GAS HCO3 24 mmol/L (22-26); BLOOD GAS METHEMOGLOBIN 0.6 % (0-2); BLOOD GAS O2 HGB SATURATION 98 % (90-100); BLOOD GAS OXYGEN CONTENT 17.9 Vol % (12.0-20.0); BLOOD GAS PCO2 39 mmHg (38-42); BLOOD GAS PO2 296 mmHG (61-120); BLOOD GAS TOTAL HGB 12.6 G/DL (12.0-16.0); CRITICAL VALUE NO; DRAW SITE LT RADIAL; FIO2 100 %; LITER FLOW 15 L/M; NUMBER OF ARTERIAL PUNCTURES 1; OXYGEN DEVICE NRB; STAT YES; TEMP CORR TO 98.6; ULNAR PULSE PRESENT
--- NOTE | 2017-01-20 22:57 | HHI.HP ---
HPI Service [facility] Hospitalists Primary Care Physician Liya Waters MD Admission Diagnosis OVERDOSE/SUICIDE ATTEMPT Chief Complaint: overdose /sucide attempt Travel History International Travel<30 Days: No Contact w/Intl Traveler <30 Da: No Traveled to Known Affected Are: No History of Present Illness Patient is a 36-year-old female brought into the emergency department by EMS after tented overdose. Patient was found sitting in her car with a hose from the tailpipe into the car with the window sealed off. Patient states that she took a handful of Benadryl, a handful of Tylenol PM, and most of her trazodone 100 mg prescription. Patient missed to attempting suicide, she reports a history of attempted suicide most recently 2 days ago. She denies any chest pain, shortness of breath, nausea, vomiting, abdominal pain this time. Patient has been stable in er but on lab work showed increase in her level of tylenol to 90 range and poison control recommend using mucomyst and psychiatry will not take until stable. Past Family Social History Past Medical History svt Past Surgical History none Reported Medications Metoprolol Tartrate 50 Mg Tab 50 Mg PO BID Zyprexa (Olanzapine) 10 Mg Tab 10 Mg PO HS Seroquel (Quetiapine Fumarate) 100 Mg Tab 100 Mg PO HS Adderall Xr 24 HR (Amphetamine/Dextroamphetamine) 30 Mg Cap 30 Mg PO DAILY Once daily in the morning. Propranolol (Propranolol HCl) 40 Mg Tab 40 Mg PO HS Flexeril (Cyclobenzaprine HCl) 10 M Allergies: Coded Allergies: Abilify (Verified Allergy, Severe, Confusion, 01/20/17) Geodon (Verified Allergy, Severe, Rash, 01/20/17) Morphine (Verified Allergy, Severe, "ILL", 01/20/17) Opiate Agonists (Narcotics) (Verified Allergy, Severe, 01/20/17) SSRI-Serotonin Reuptake Inhib (Verified Allergy, Severe, 01/20/17) Sulfa (Verified Allergy, Severe, RASH-HIVES, 01/20/17) Social History ND some smoking Physical Exam Vital Signs Vital Signs Date Time Temp Pulse Resp B/P Pulse Ox O2 Delivery O2 Flow Rate FiO2 01/20/17 19:00 82 15 106/65 100 Nasal Cannula 2 01/20/17 19:00 85 15 100 Nasal Cannula 2 01/20/17 18:00 87 16 101/60 100 Non-Rebreather 100 01/20/17 16:59 99 Non-Rebreather 100 01/20/17 16:49 85 20 95/56 100 Non-Rebreather 01/20/17 16:35 81 13 95/56 93 Physical Exam GENERAL: This is a well-nourished, well-developed patient, in no apparent distress. SKIN: No rashes, ecchymoses or lesions. Cool and dry. HEAD: Atraumatic. Normocephalic. No temporal or scalp tenderness. EYES: Pupils equal round and reactive. Extraocular motions intact. No scleral icterus. No injection or drainage. ENT: Nose without bleeding, purulent drainage or septal hematoma. Throat without erythema, tonsillar hypertrophy or exudate. Uvula midline. Airway patent. NECK: Trachea midline. No JVD or lymphadenopathy. Supple, nontender, no meningeal signs. CARDIOVASCULAR: Regular rate and rhythm without murmurs, gallops, or rubs. RESPIRATORY: Clear to auscultation. Breath sounds equal bilaterally. No wheezes , rales, or rhonchi. GASTROINTESTINAL: Abdomen soft, non-tender, nondistended. No hepato-splenomegaly , or palpable masses. No guarding. MUSCULOSKELETAL: Extremities without clubbing, cyanosis, or edema. No joint tenderness, effusion, or edema noted. No calf tenderness. Negative Homans sign bilaterally. NEUROLOGICAL: Awake and alert. Cranial nerves II through XII intact. Motor and sensory grossly within normal limits. Five out of 5 muscle strength in all muscle groups. Normal speech. Laboratory Laboratory Tests Test 01/20/17 01/20/17 01/20/17 01/20/17 16:55 17:05 19:35 20:50 Blood Gas Puncture Site RT RADIAL Blood Gas Patient Temperature 98.6 Blood Gas HCO3 24 Blood Gas Base Excess -0.5 Blood Gas Oxygen Saturation 90 Arterial Blood pH 7.41 Arterial Blood Partial 38 Pressure CO2 Arterial Blood Partial 131 Pressure O2 Arterial Blood Oxygen Content 16.1 Arterial Blood 7.5 Carboxyhemoglobin Arterial Blood Methemoglobin 1.6 Blood Gas Hemoglobin 12.6 Oxygen Delivery Device NASAL CANNULA Blood Gas Liter Flow 2 Blood Gas Inspired Oxygen 28 White Blood Count 7.8 Red Blood Count 3.71 Hemoglobin 12.2 Hematocrit 36.8 Mean Corpuscular Volume 99.2 Mean Corpuscular Hemoglobin 33.0 Mean Corpuscular Hemoglobin 33.3 Concent Red Cell Distribution Width 13.4 Platelet Count 279 Mean Platelet Volume 7.6 Neutrophils (%) (Auto) 54.4 Lymphocytes (%) (Auto) 35.8 Monocytes (%) (Auto) 5.7 Eosinophils (%) (Auto) 3.0 Basophils (%) (Auto) 1.1 Neutrophils # (Auto) 4.2 Lymphocytes # (Auto) 2.8 Monocytes # (Auto) 0.4 Eosinophils # (Auto) 0.2 Basophils # (Auto) 0.1 CBC Comment DIFF FINAL Differential Comment Prothrombin Time 11.8 Prothromb Time International 1.1 Ratio Activated Partial 24.7 Thromboplast Time Sodium Level 139 Potassium Level 3.9 Chloride Level 102 Carbon Dioxide Level 28.6 Anion Gap 8 Blood Urea Nitrogen 8 Creatinine 0.76 Estimat Glomerular Filtration 87 Rate Random Glucose 109 Serum Osmolality 287 Calcium Level 8.9 Total Bilirubin 0.8 Aspartate Amino Transf 22 (AST/SGOT) Alanine Aminotransferase 23 (ALT/SGPT) Alkaline Phosphatase 60 Total Protein 7.2 Albumin 4.6 Salicylates Level 3.9 Acetaminophen Level 77.7 94.9 Ethyl Alcohol Level LESS THAN 3 Urine Opiates Screen NEG Urine Barbiturates Screen NEG Urine Amphetamines Screen POS Urine Benzodiazepines Screen POS Urine Cocaine Screen NEG Urine Cannabinoids Screen NEG Test 01/20/17 21:55 Blood Gas Puncture Site LT RADIAL Blood Gas Patient Temperature 98.6 Blood Gas HCO3 24 Blood Gas Base Excess 0.2 Blood Gas Oxygen Saturation 98 Arterial Blood pH 7.41 Arterial Blood Partial 39 Pressure CO2 Arterial Blood Partial 296 Pressure O2 Arterial Blood Oxygen Content 17.9 Arterial Blood 0.0 Carboxyhemoglobin Arterial Blood Methemoglobin 0.6 Blood Gas Hemoglobin 12.6 Oxygen Delivery Device NRB Blood Gas Liter Flow 15 Blood Gas Inspired Oxygen 100 Result Diagram: 01/20/17 1705 01/20/17 1705 Course in er started mucomyst as per poison control Assessment and Plan Problem List: (1) Acetaminophen overdose Status: Acute Plan: mucomyst per poison control recheck level in am (2) Suicide attempt by multiple drug overdose Status: Acute Plan: as above psy consult (3) Suicide attempt by carbon monoxide poisoning Status: Acute Plan: as above psy consult (4) Medical clearance for psychiatric admission Status: Acute Plan: once stable cleared for transfer to [facility] Assessment and Plan further plan as case progresses Code Status full Discussed Condition With patient Problem Qualifiers (1) Acetaminophen overdose: Qualified Code: T39.1X2A - Acetaminophen overdose, intentional self-harm, initial encounter (2) Suicide attempt by multiple drug overdose: Qualified Code: T50.902A - Suicide attempt by multiple drug overdose, initial encounter (3) Suicide attempt by carbon monoxide poisoning: Qualified Code: T58.92XA - Suicide attempt by carbon monoxide poisoning, initial encounter Amrik Garcia MD Jan 20, 2017 22:57
[2017-01-20 23:00] VITALS: BP 127/68; PULSE 80; RESP 16; O2SAT 100
[2017-01-20] MEDS ORDERED: SODIUM CHLORIDE 0.9% FLUSH 10 ML FLUSH IV FLUSH PRN (23:00)
[2017-01-20] MEDS ORDERED: NALOXONE HCL 0.4 MG/ML AMP IV PRN (23:00)
[2017-01-20] MEDS: SODIUM CHLOR 0.45% 1000 ML INJ 1,000 ML IV SCH (23:36)
[2017-01-21] VITALS (12 sets, daily range): BP systolic 106–139; BP diastolic 57–73; PULSE 83–97; RESP 14–24; TEMP 98.4–99.1; O2SAT 94–100
[2017-01-21] MEDS: ACETYLCYSTEINE 20% 6,000 MG/30 ML ORAL SOLN VIAL PO SCH ×5 (03:29→21:55)
[2017-01-21] MEDS ORDERED: KLON2TAB PO (07:56)
[2017-01-21] MEDS: SODIUM CHLORIDE 0.9% FLUSH 10 ML FLUSH IV FLUSH SCH ×2 (09:00→21:00)
[2017-01-21] MEDS: DEXTROAMPHETAMINE/AMPHETAMINE XR 30 MG CAP PO SCH (10:07)
[2017-01-21] MEDS: METOPROLOL TARTRATE 50 MG TAB PO SCH ×2 (10:07→21:58)
[2017-01-21] MEDS: ONDANSETRON HCL 4 MG/2 ML VIAL IVP PRN ×2 (10:37→17:12)
[2017-01-21] MEDS: SODIUM CHLOR 0.45% 1000 ML INJ 1,000 ML IV SCH (13:29)
--- NOTE | 2017-01-21 15:16 | HHI.PR ---
Subjective Remarks Pt without any specific complaints. She states that the nausea is improving. She requests that her Clonazepam be restarted to help her sleep. Objective Vitals Vital Signs Date Time Temp Pulse Resp B/P Pulse Ox O2 Delivery O2 Flow Rate FiO2 01/21/17 14:44 98.4 97 20 109/62 95 01/21/17 14:28 139/69 96 01/21/17 09:29 90 18 122/64 94 01/21/17 07:56 84 24 114/57 95 Room Air 01/21/17 06:30 99.1 91 14 119/61 96 Room Air 01/21/17 05:04 98.9 93 14 114/58 97 Room Air 01/21/17 03:29 98.9 93 14 112/59 96 Room Air 01/21/17 01:00 83 16 119/63 100 Room Air 2 01/21/17 00:23 100 Nasal Cannula 2.00 01/20/17 23:00 80 16 127/68 100 Nasal Cannula 2 01/20/17 21:00 84 17 112/70 100 Nasal Cannula 2 01/20/17 19:00 82 15 106/65 100 Nasal Cannula 2 01/20/17 19:00 100 Nasal Cannula 2.00 01/20/17 19:00 85 15 100 Nasal Cannula 2 01/20/17 18:00 87 16 101/60 100 Non-Rebreather 100 01/20/17 16:59 99 Non-Rebreather 100 01/20/17 16:49 85 20 95/56 100 Non-Rebreather 01/20/17 16:35 81 13 95/56 93 Result Diagram: 01/20/17 1705 01/20/17 1705 Other Results Laboratory Tests Test 01/20/17 01/20/17 01/20/17 01/20/17 16:55 17:05 19:35 20:50 Blood Gas Puncture Site RT RADIAL Blood Gas Patient Temperature 98.6 Blood Gas HCO3 24 mmol/L Blood Gas Base Excess -0.5 mmol/L Blood Gas Oxygen Saturation 90 % Arterial Blood pH 7.41 Arterial Blood Partial 38 mmHg Pressure CO2 Arterial Blood Partial 131 mmHg Pressure O2 Arterial Blood Oxygen Content 16.1 Vol % Arterial Blood 7.5 % Carboxyhemoglobin Arterial Blood Methemoglobin 1.6 % Blood Gas Hemoglobin 12.6 G/DL Oxygen Delivery Device NASAL CANNULA Blood Gas Liter Flow 2 L/M Blood Gas Inspired Oxygen 28 % White Blood Count 7.8 TH/MM3 Red Blood Count 3.71 MIL/MM3 Hemoglobin 12.2 GM/DL Hematocrit 36.8 % Mean Corpuscular Volume 99.2 FL Mean Corpuscular Hemoglobin 33.0 PG Mean Corpuscular Hemoglobin 33.3 % Concent Red Cell Distribution Width 13.4 % Platelet Count 279 TH/MM3 Mean Platelet Volume 7.6 FL Neutrophils (%) (Auto) 54.4 % Lymphocytes (%) (Auto) 35.8 % Monocytes (%) (Auto) 5.7 % Eosinophils (%) (Auto) 3.0 % Basophils (%) (Auto) 1.1 % Neutrophils # (Auto) 4.2 TH/MM3 Lymphocytes # (Auto) 2.8 TH/MM3 Monocytes # (Auto) 0.4 TH/MM3 Eosinophils # (Auto) 0.2 TH/MM3 Basophils # (Auto) 0.1 TH/MM3 CBC Comment DIFF FINAL Differential Comment Prothrombin Time 11.8 SEC Prothromb Time International 1.1 RATIO Ratio Activated Partial 24.7 SEC Thromboplast Time Sodium Level 139 MEQ/L Potassium Level 3.9 MEQ/L Chloride Level 102 MEQ/L Carbon Dioxide Level 28.6 MEQ/L Anion Gap 8 MEQ/L Blood Urea Nitrogen 8 MG/DL Creatinine 0.76 MG/DL Estimat Glomerular Filtration 87 ML/MIN Rate Random Glucose 109 MG/DL Serum Osmolality 287 MOSM/KG Calcium Level 8.9 MG/DL Total Bilirubin 0.8 MG/DL Aspartate Amino Transf 22 U/L (AST/SGOT) Alanine Aminotransferase 23 U/L (ALT/SGPT) Alkaline Phosphatase 60 U/L Total Protein 7.2 GM/DL Albumin 4.6 GM/DL Salicylates Level 3.9 MG/DL Acetaminophen Level 77.7 MCG/ML 94.9 MCG/ML Ethyl Alcohol Level LESS THAN 3 MG/DL Urine Opiates Screen NEG Urine Barbiturates Screen NEG Urine Amphetamines Screen POS Urine Benzodiazepines Screen POS Urine Cocaine Screen NEG Urine Cannabinoids Screen NEG Test 01/20/17 01/21/17 01/21/17 21:55 04:45 12:45 Blood Gas Puncture Site LT RADIAL Blood Gas Patient Temperature 98.6 Blood Gas HCO3 24 mmol/L Blood Gas Base Excess 0.2 mmol/L Blood Gas Oxygen Saturation 98 % Arterial Blood pH 7.41 Arterial Blood Partial 39 mmHg Pressure CO2 Arterial Blood Partial 296 mmHG Pressure O2 Arterial Blood Oxygen Content 17.9 Vol % Arterial Blood 0.0 % Carboxyhemoglobin Arterial Blood Methemoglobin 0.6 % Blood Gas Hemoglobin 12.6 G/DL Oxygen Delivery Device NRB Blood Gas Liter Flow 15 L/M Blood Gas Inspired Oxygen 100 % Acetaminophen Level 34.9 MCG/ML 2.8 MCG/ML Objective Remarks General: NAD, AAOx3 Chest: CTA Cardiac: Regular Abd: +BS, soft ND/NT Ext: No edema A/P Problem List: (1) Acetaminophen overdose Status: Acute Plan: - Pt admitted after a suicide attempt when she was found sitting in her car with a hose from the tailpipe into the car with the window sealed off and she had reportedly taken a handful of Benadryl, a handful of Tylenol PM, and most of her trazodone 100 mg prescription. - Her Carboxyhemoglobin level at admission was elevated at 7.5 but repeat level several hours later was 0. - Her Tylenol level at admission was 77.7 and she was started on acetaminophen toxicity treatment protocol of Mucomyst 5,250mg po Q4H x 17 doses over 72 hours. - Initially her Tylenol level increased to 94.9 but has been coming down and most recent check was 2.8 - Psychiatry has been consulted. - Check Tylenol level, LFTs, and PT/INR in AM - Once medically stabilized she will likely be discharged to Psychiatry unit. - DVT prophylaxis (2) Suicide attempt by multiple drug overdose Status: Acute Plan: - See above (3) Suicide attempt by carbon monoxide poisoning Status: Acute Plan: - See above (4) Sinus tachycardia Status: Chronic Plan: - Pt with hx of sinus tachycardia which is controlled on Metoprolol 50mg po BID - HR stable. Assessment and Plan Patient examined. Assessment and plan formulated with Zuri Paris PA-C. I agree with the above. Problem Qualifiers (1) Acetaminophen overdose: Qualified Code: T39.1X2A - Acetaminophen overdose, intentional self-harm, initial encounter (2) Suicide attempt by multiple drug overdose: Qualified Code: T50.902A - Suicide attempt by multiple drug overdose, initial encounter (3) Suicide attempt by carbon monoxide poisoning: Qualified Code: T58.92XA - Suicide attempt by carbon monoxide poisoning, initial encounter Zuri Paris Jan 21, 2017 15:16 Haroldo Pantoja DO Jan 24, 2017 00:14
[2017-01-21] MEDS: SODIUM CHLOR 0.9% 1000 ML INJ 1,000 ML IV SCH (16:58)
[2017-01-21] MEDS ORDERED: PROPRANOLOL HCL 40 MG TAB PO SCH (21:00)
[2017-01-21] MEDS ORDERED: clonazePAM 1 MG TAB PO SCH (21:00)
[2017-01-21] MEDS ORDERED: QUEtiapine FUMARATE 100 MG TAB PO SCH (21:00)
[2017-01-21] MEDS ORDERED: OLANZapine 10 MG TAB PO SCH (21:00)
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
--- NOTE | 2017-01-21 22:09 | EKG ---
Date Performed: 01/20/2017 Time Performed: 21:34:26 PTAGE: 36 years EKG: Sinus rhythm NONSPECIFIC T-WAVE ABNORMALITY Since previous tracing, no significant change noted BORDERLINE ECG PREVIOUS TRACING : 01/20/2017 19.18 DOCTOR: Sanjuana Balderrama Interpretating Date/Time 01/21/2017 22:08:35
--- NOTE | 2017-01-21 22:09 | EKG ---
Date Performed: 01/20/2017 Time Performed: 19:18:25 PTAGE: 36 years EKG: Sinus rhythm WITH SHORT IA INTERVAL NONSPECIFIC T-WAVE ABNORMALITY Since previous tracing, no significant change noted BORDERLINE ECG PREVIOUS TRACING : 01/20/17 16.52.17 DOCTOR: Sanjuana Balderrama Interpretating Date/Time 01/21/2017 22:08:16
[2017-01-22] MEDS: ACETYLCYSTEINE 20% 6,000 MG/30 ML ORAL SOLN VIAL PO SCH ×2 (01:56→05:41)
[2017-01-22 02:12] VITALS: BP 104/65; PULSE 77; RESP 18; O2SAT 93
[2017-01-22] MEDS: SODIUM CHLOR 0.9% 1000 ML INJ 1,000 ML IV SCH (04:30)
[2017-01-22 05:38] LABS: INTERNATIONAL NORMALIZED RATIO 1.2 RATIO; PROTHROMBIN TIME - PATIENT 12.8 SEC (9.8-11.6)
[2017-01-22 06:02] LABS: ACETAMINOPHEN LESS THAN 2.0 MCG/ML (10.0-30.0); ALKALINE PHOSPHATASE 48 U/L (45-117); ALT (GPT) 23 U/L (10-53); ANION GAP 8 MEQ/L (5-15); AST (GOT) 17 U/L (15-37); BICARBONATE 25.2 MEQ/L (21.0-32.0); BLOOD UREA NITROGEN 8 MG/DL (7-18); CHLORIDE 109 MEQ/L (98-107); GLOMERULAR FILTRATION RATE 132 ML/MIN (>89); POTASSIUM 3.7 MEQ/L (3.5-5.1); SODIUM (NA) 142 MEQ/L (136-145); TOTAL BILIRUBIN ADULT 0.3 MG/DL (0.2-1.0)
[2017-01-22 06:26] LABS: AUTOMATED NEUTROPHIL # 4.4 TH/MM3 (1.8-7.7); BASOPHIL % 0.5 % (0.0-2.0); EOSINOPHIL # 0.2 TH/MM3 (0-0.4); EOSINOPHIL % 2.6 % (0.0-4.0); HEMATOCRIT 34.8 % (35.0-46.0); HEMO FLAGS DIFF FINAL; LYMPH % 31.5 % (9.0-44.0); LYMPHOCYTE # 2.3 TH/MM3 (1.0-4.8); MEAN CELL VOLUME 98.3 FL (80.0-100.0); MEAN CORPUSCULAR HEMOGLOBIN 33.9 PG (27.0-34.0); MEAN CORPUSCULAR HGB CONC 34.4 % (32.0-36.0); MONO % 4.8 % (0.0-8.0); NEUT % 60.6 % (16.0-70.0); PLATELET COUNT 288 TH/MM3 (150-450); RED BLOOD COUNT 3.54 MIL/MM3 (4.00-5.30); RED CELL DISTRIBUTION WIDTH 13.9 % (11.6-17.2); WHITE BLOOD COUNT 7.3 TH/MM3 (4.0-11.0)
--- NOTE | 2017-01-22 07:29 | PD.CONS ---
HPI Service CV Consult Requested By Reason for Consult medication review Primary Care Physician Liya Waters MD History of Present Illness Here after attempted suicide with h/o of multiple psychiatric diagnoses and SVT. She denies any chest pain, shortness of breath or palpitations. Her psychiatrist would like to start Pristiq and want to make sure it is okay to take with her cardiac medications Review of Systems Consitutional: DENIES: Fatigue, Fever, Chills, Weight gain, Weight loss Eyes: DENIES: Amaurosis Fugax, Change in vision HEENT: DENIES: Lightheadedness, Change in hearing Respiratory: DENIES: See HPI, Cough, Snoring, Shortness of breath, Wheezing, Sputum production Cardiovascular: DENIES: See HPI, Chest pain, Palpitations, Syncope, Tachycardia Gastrointestinal: DENIES: Nausea, Vomiting, Change in bowel habits, Reflux, Bloody stools, Melena Genitourinary: DENIES: Urinary incontinence, Difficulty voiding Integumentary: DENIES: Rash Neurologic: DENIES: Tingling or numbness, Memory problems, Poor Balance, Stroke symptoms Musculoskeletal: DENIES: Joint pain, Muscle pain, Limited range of motion, Back pain Psychiatric: DENIES: Anxiety, Depression, Sleep disturbances Hematologic: DENIES: Bruising tendencies, Bleeding tendencies Endocrine: DENIES: Weight gain, Weight loss, Thyroid disease Past Family Social History Allergies: Coded Allergies: Abilify (Verified Allergy, Severe, Confusion, 01/20/17) Geodon (Verified Allergy, Severe, Rash, 01/20/17) Morphine (Verified Allergy, Severe, "ILL", 01/20/17) Opiate Agonists (Narcotics) (Verified Allergy, Severe, 01/20/17) SSRI-Serotonin Reuptake Inhib (Verified Allergy, Severe, 01/20/17) Sulfa (Verified Allergy, Severe, RASH-HIVES, 01/20/17) Past Medical History see HPI Past Surgical History noncontributory Reported Medications Reported Meds & Active Scripts Active Reported Klonopin (Clonazepam) 2 Mg Tab 2 Mg PO HS Metoprolol Tartrate 50 Mg Tab 50 Mg PO BID Zyprexa (Olanzapine) 10 Mg Tab 10 Mg PO HS Seroquel (Quetiapine Fumarate) 100 Mg Tab 100 Mg PO HS Adderall Xr 24 HR (Amphetamine/Dextroamphetamine) 30 Mg Cap 30 Mg PO DAILY Once daily in the morning. Propranolol (Propranolol HCl) 40 Mg Tab 40 Mg PO HS Flexeril (Cyclobenzaprine HCl) 10 Mg Tab 10 Mg PO HS Active Ordered Medications Current Medications Medications (Trade) Dose Ordered Sig/Dorinda Route Start Time Stop Time Status Last Admin (Adderall Xr) 30 mg DAILY PO 01/21/17 09:00 01/21/17 10:07 (Lopressor) 50 mg BID PO 01/21/17 09:00 01/21/17 21:58 (ZyPREXA) 10 mg HS PO 01/21/17 21:00 01/21/17 21:56 (Inderal) 40 mg HS PO 01/21/17 21:00 01/21/17 21:58 (SEROquel) 100 mg HS PO 01/21/17 21:00 01/21/17 21:57 (NS Flush) 2 ml UNSCH PRN IV FLUSH 01/20/17 23:00 (NS Flush) 2 ml BID IV FLUSH 01/21/17 09:00 01/21/17 21:00 (Zofran Inj) 4 mg Q6H PRN IVP 01/20/17 23:00 01/21/17 17:12 (Narcan Inj) 0.4 mg UNSCH PRN IV 01/20/17 23:00 Acetylcysteine 5250 mg 5,250 mg Q4H PO 01/21/17 03:00 01/23/17 19:01 01/22/17 05:41 (NS 1000 ml Inj) 1,000 ml @ 80 mls/hr [id number] IV 01/21/17 16:00 01/21/17 16:58 (KlonoPIN) 2 mg HS PO 01/21/17 21:00 01/21/17 21:56 Family History noncontributory Social History smokes, denies substance abuse Physical Exam Vital Signs Vital Signs Date Time Temp Pulse Resp B/P Pulse Ox O2 Delivery O2 Flow Rate FiO2 01/22/17 02:12 77 18 104/65 93 01/21/17 21:15 90 01/21/17 20:05 98.6 89 18 106/73 95 01/21/17 19:32 90 01/21/17 14:44 98.4 97 20 109/62 95 01/21/17 14:28 139/69 96 01/21/17 09:29 90 18 122/64 94 01/21/17 07:56 84 24 114/57 95 Room Air Physical Exam GENERAL: Well-nourished, well-developed patient in no apparent distress. NECK: No JVD. No carotid bruit. CARDIOVASCULAR: Regular rate and rhythm. S1/S2 no murmur, rub, or gallop. RESPIRATORY: No accessory muscle use. Clear to auscultation. Breath sounds equal bilaterally. GASTROINTESTINAL: Abdomen soft, non-tender, nondistended. MUSCULOSKELETAL: Extremities without clubbing, cyanosis, or edema. Laboratory Laboratory Tests Test 01/21/17 01/22/17 12:45 05:14 Acetaminophen Level 2.8 LESS THAN 2.0 White Blood Count 7.3 Red Blood Count 3.54 Hemoglobin 12.0 Hematocrit 34.8 Mean Corpuscular Volume 98.3 Mean Corpuscular Hemoglobin 33.9 Mean Corpuscular Hemoglobin 34.4 Concent Red Cell Distribution Width 13.9 Platelet Count 288 Mean Platelet Volume 8.0 Neutrophils (%) (Auto) 60.6 Lymphocytes (%) (Auto) 31.5 Monocytes (%) (Auto) 4.8 Eosinophils (%) (Auto) 2.6 Basophils (%) (Auto) 0.5 Neutrophils # (Auto) 4.4 Lymphocytes # (Auto) 2.3 Monocytes # (Auto) 0.3 Eosinophils # (Auto) 0.2 Basophils # (Auto) 0.0 CBC Comment DIFF FINAL Differential Comment Prothrombin Time 12.8 Prothromb Time International 1.2 Ratio Sodium Level 142 Potassium Level 3.7 Chloride Level 109 Carbon Dioxide Level 25.2 Anion Gap 8 Blood Urea Nitrogen 8 Creatinine 0.53 Estimat Glomerular Filtration 132 Rate Random Glucose 87 Calcium Level 8.6 Total Bilirubin 0.3 Aspartate Amino Transf 17 (AST/SGOT) Alanine Aminotransferase 23 (ALT/SGPT) Alkaline Phosphatase 48 Total Protein 6.4 Albumin 3.4 Result Diagram: 01/22/1751301/22/17513 Assessment and Plan Problem List: (1) SVT (supraventricular tachycardia) Discussed Condition With There is no drug-drug interaction with Pristiq and metoprolol or propranolol Ayan Urbina Jan 22, 2017 07:29
--- NOTE | 2017-01-22 07:48 | EKG ---
Date Performed: 01/20/2017 Time Performed: 16:52:17 PTAGE: 36 years EKG: Sinus rhythm NONSPECIFIC T-WAVE ABNORMALITY BORDERLINE ECG Compared to PREVIOUS TRACING , the patient has developed nonspecific anteroseptal T-wave changes. PRE VIOUS TRACIN01/18/2017 04.03 DOCTOR: Sanjuana Balderrama Interpretating Date/Time 01/22/2017 07:47:21
--- NOTE | 2017-01-22 08:56 | HHI.DCPOC ---
Discharge Care Plan Diagnosis: (1) Suicide attempt by multiple drug overdose (2) Acetaminophen overdose (3) Sinus tachycardia (4) Medical clearance for psychiatric admission Goals to Promote Your Health * To prevent worsening of your condition and complications * To maintain your health at the optimal level Directions to Meet Your Goals Take your medications as prescribed Follow your dietary instruction Follow activity as directed Keep your appointments as scheduled Take your immunizations and boosters as scheduled If your symptoms worsen call your PCP, if no PCP go to Urgent Care Center or Emergency Room Smoking is Dangerous to Your Health. Avoid second hand smoke Call the 24-hour hour crisis hotline for domestic abuse at Zuri Paris Jan 22, 2017 08:56 Haroldo Pantoja DO Jan 24, 2017 00:16
--- NOTE | 2017-01-22 09:02 | HHI.PR ---
Subjective Remarks No new complaints. HR has been stable since admission. Objective Vitals Vital Signs Date Time Temp Pulse Resp B/P Pulse Ox O2 Delivery O2 Flow Rate FiO2 01/22/17 02:12 77 18 104/65 93 01/21/17 21:15 90 01/21/17 20:05 98.6 89 18 106/73 95 01/21/17 19:32 90 01/21/17 14:44 98.4 97 20 109/62 95 01/21/17 14:28 139/69 96 01/21/17 09:29 90 18 122/64 94 Result Diagram: 01/22/17 0514 01/22/17 0514 Other Results Laboratory Tests Test 01/20/17 01/20/17 01/20/17 01/20/17 16:55 17:05 19:35 20:50 Blood Gas Puncture Site RT RADIAL Blood Gas Patient Temperature 98.6 Blood Gas HCO3 24 mmol/L Blood Gas Base Excess -0.5 mmol/L Blood Gas Oxygen Saturation 90 % Arterial Blood pH 7.41 Arterial Blood Partial 38 mmHg Pressure CO2 Arterial Blood Partial 131 mmHg Pressure O2 Arterial Blood Oxygen Content 16.1 Vol % Arterial Blood 7.5 % Carboxyhemoglobin Arterial Blood Methemoglobin 1.6 % Blood Gas Hemoglobin 12.6 G/DL Oxygen Delivery Device NASAL CANNULA Blood Gas Liter Flow 2 L/M Blood Gas Inspired Oxygen 28 % White Blood Count 7.8 TH/MM3 Red Blood Count 3.71 MIL/MM3 Hemoglobin 12.2 GM/DL Hematocrit 36.8 % Mean Corpuscular Volume 99.2 FL Mean Corpuscular Hemoglobin 33.0 PG Mean Corpuscular Hemoglobin 33.3 % Concent Red Cell Distribution Width 13.4 % Platelet Count 279 TH/MM3 Mean Platelet Volume 7.6 FL Neutrophils (%) (Auto) 54.4 % Lymphocytes (%) (Auto) 35.8 % Monocytes (%) (Auto) 5.7 % Eosinophils (%) (Auto) 3.0 % Basophils (%) (Auto) 1.1 % Neutrophils # (Auto) 4.2 TH/MM3 Lymphocytes # (Auto) 2.8 TH/MM3 Monocytes # (Auto) 0.4 TH/MM3 Eosinophils # (Auto) 0.2 TH/MM3 Basophils # (Auto) 0.1 TH/MM3 CBC Comment DIFF FINAL Differential Comment Prothrombin Time 11.8 SEC Prothromb Time International 1.1 RATIO Ratio Activated Partial 24.7 SEC Thromboplast Time Sodium Level 139 MEQ/L Potassium Level 3.9 MEQ/L Chloride Level 102 MEQ/L Carbon Dioxide Level 28.6 MEQ/L Anion Gap 8 MEQ/L Blood Urea Nitrogen 8 MG/DL Creatinine 0.76 MG/DL Estimat Glomerular Filtration 87 ML/MIN Rate Random Glucose 109 MG/DL Serum Osmolality 287 MOSM/KG Calcium Level 8.9 MG/DL Total Bilirubin 0.8 MG/DL Aspartate Amino Transf 22 U/L (AST/SGOT) Alanine Aminotransferase 23 U/L (ALT/SGPT) Alkaline Phosphatase 60 U/L Total Protein 7.2 GM/DL Albumin 4.6 GM/DL Salicylates Level 3.9 MG/DL Acetaminophen Level 77.7 MCG/ML 94.9 MCG/ML Ethyl Alcohol Level LESS THAN 3 MG/DL Urine Opiates Screen NEG Urine Barbiturates Screen NEG Urine Amphetamines Screen POS Urine Benzodiazepines Screen POS Urine Cocaine Screen NEG Urine Cannabinoids Screen NEG Test 01/20/17 01/21/17 01/21/17 01/22/17 21:55 04:45 12:45 05:14 Blood Gas Puncture Site LT RADIAL Blood Gas Patient Temperature 98.6 Blood Gas HCO3 24 mmol/L Blood Gas Base Excess 0.2 mmol/L Blood Gas Oxygen Saturation 98 % Arterial Blood pH 7.41 Arterial Blood Partial 39 mmHg Pressure CO2 Arterial Blood Partial 296 mmHG Pressure O2 Arterial Blood Oxygen Content 17.9 Vol % Arterial Blood 0.0 % Carboxyhemoglobin Arterial Blood Methemoglobin 0.6 % Blood Gas Hemoglobin 12.6 G/DL Oxygen Delivery Device NRB Blood Gas Liter Flow 15 L/M Blood Gas Inspired Oxygen 100 % Acetaminophen Level 34.9 MCG/ML 2.8 MCG/ML LESS THAN 2.0 MCG/ML White Blood Count 7.3 TH/MM3 Red Blood Count 3.54 MIL/MM3 Hemoglobin 12.0 GM/DL Hematocrit 34.8 % Mean Corpuscular Volume 98.3 FL Mean Corpuscular Hemoglobin 33.9 PG Mean Corpuscular Hemoglobin 34.4 % Concent Red Cell Distribution Width 13.9 % Platelet Count 288 TH/MM3 Mean Platelet Volume 8.0 FL Neutrophils (%) (Auto) 60.6 % Lymphocytes (%) (Auto) 31.5 % Monocytes (%) (Auto) 4.8 % Eosinophils (%) (Auto) 2.6 % Basophils (%) (Auto) 0.5 % Neutrophils # (Auto) 4.4 TH/MM3 Lymphocytes # (Auto) 2.3 TH/MM3 Monocytes # (Auto) 0.3 TH/MM3 Eosinophils # (Auto) 0.2 TH/MM3 Basophils # (Auto) 0.0 TH/MM3 CBC Comment DIFF FINAL Differential Comment Prothrombin Time 12.8 SEC Prothromb Time International 1.2 RATIO Ratio Sodium Level 142 MEQ/L Potassium Level 3.7 MEQ/L Chloride Level 109 MEQ/L Carbon Dioxide Level 25.2 MEQ/L Anion Gap 8 MEQ/L Blood Urea Nitrogen 8 MG/DL Creatinine 0.53 MG/DL Estimat Glomerular Filtration 132 ML/MIN Rate Random Glucose 87 MG/DL Calcium Level 8.6 MG/DL Total Bilirubin 0.3 MG/DL Aspartate Amino Transf 17 U/L (AST/SGOT) Alanine Aminotransferase 23 U/L (ALT/SGPT) Alkaline Phosphatase 48 U/L Total Protein 6.4 GM/DL Albumin 3.4 GM/DL Objective Remarks General: NAD, AAOx3 Chest: CTA Cardiac: Regular Abd: +BS, soft ND/NT Ext: No edema A/P Problem List: (1) Acetaminophen overdose Status: Acute Plan: - Pt admitted after a suicide attempt when she was found sitting in her car with a hose from the tailpipe into the car with the window sealed off and she had reportedly taken a handful of Benadryl, a handful of Tylenol PM, and most of her trazodone 100 mg prescription. - Her Carboxyhemoglobin level at admission was elevated at 7.5 but repeat level several hours later was 0. - Her Tylenol level at admission was 77.7 and she was started on acetaminophen toxicity treatment protocol of Mucomyst 5,250mg po Q4H x 17 doses over 72 hours. - Initially her Tylenol level increased to 94.9 but has been coming down and most recent check this morning was less than 2.0 - [place] at [facility] contacted the pts nurse this morning and with the Tylenol level reaching less than 2.0 pt is cleared to from their standpoint to stop the Mucomyst. - Psychiatry evaluated the pt and requested Cardiology consult for clearance to start Pristiq. - Cardiology evaluated this morning and reports that is no drug-drug interaction with Pristiq and metoprolol or propranolol - Pt is medically stabilized and cleared for discharge to Psychiatry unit today (2) Suicide attempt by multiple drug overdose Status: Acute Plan: - See above (3) Suicide attempt by carbon monoxide poisoning Status: Acute Plan: - See above (4) Sinus tachycardia Status: Chronic Plan: - Pt with hx of sinus tachycardia which is controlled on Metoprolol 50mg po BID - HR stable. Assessment and Plan Patient examined. Assessment and plan formulated with Zuri Paris PA-C. I agree with the above. Problem Qualifiers (1) Acetaminophen overdose: Qualified Code: T39.1X2A - Acetaminophen overdose, intentional self-harm, initial encounter (2) Suicide attempt by multiple drug overdose: Qualified Code: T50.902A - Suicide attempt by multiple drug overdose, initial encounter (3) Suicide attempt by carbon monoxide poisoning: Qualified Code: T58.92XA - Suicide attempt by carbon monoxide poisoning, initial encounter Zuri Paris Jan 22, 2017 09:02 Haroldo Pantoja DO Jan 24, 2017 00:15
[2017-01-22] MEDS: DEXTROAMPHETAMINE/AMPHETAMINE XR 30 MG CAP PO SCH (09:52)
[2017-01-22] MEDS: METOPROLOL TARTRATE 50 MG TAB PO SCH (09:53)
[2017-01-22] MEDS: SODIUM CHLORIDE 0.9% FLUSH 10 ML FLUSH IV FLUSH SCH (09:53)
[2017-01-22 11:36] VITALS: BP 92/58; PULSE 86; RESP 18; TEMP 98.3; O2SAT 95
== END 2017-01-22 14:27 | disposition home or self-care (01) ==
LOC: NEPC 16:31 → INTOOBSV 22:45 → NEDA 22:45 → NEDH 01-21 03:16 → NEPHCDU 01-21 14:33
PROVIDERS: ADMIT Hospitalist; ATTEND Hospitalist
DX: T45.0X2A Poisoning by antiallergic and antiemetic drugs, intentional self-harm, initial encounter (principal); T39.1X2A Poisoning by 4-Aminophenol derivatives, intentional self-harm, initial encounter; T43.212A Poisoning by selective serotonin and norepinephrine reuptake inhibitors, intentional self-harm, initial encounter; T58.02XA Toxic effect of carbon monoxide from motor vehicle exhaust, intentional self-harm, initial encounter; Z91.5 Personal history of self-harm; F31.9 Bipolar disorder, unspecified; F41.9 Anxiety disorder, unspecified; I47.1 Supraventricular tachycardia; E28.2 Polycystic ovarian syndrome; R63.0 Anorexia; R51 Headache; I10 Essential (primary) hypertension; Z79.899 Other long term (current) drug therapy; R11.0 Nausea; R45.1 Restlessness and agitation; F60.3 Borderline personality disorder; F43.10 Post-traumatic stress disorder, unspecified; Z86.59 Personal history of other mental and behavioral disorders
CPT/HCPCS: 36600; 80053; 80307; 82805; 83930; 85025; 85610; 85730; 93005; 96361; 96374; 99285; G0378; J2405; J7030

== ENCOUNTER 2017-01-22 14:43 | Inpatient (IN) | payer OTHER ==
[~2017-01-22] VITALS: Ht 167.6 cm; Wt 56.8 kg
[2017-01-22 14:25] VITALS: BP 115/64; PULSE 77; RESP 16; TEMP 98.4; O2SAT 97
[~2017-01-22 14:43] MED LIST changes: +KLON2TAB PO
[2017-01-22] MEDS ORDERED: MAGNESIUM HYDROXIDE SUSP 30 ML CUP PO PRN (15:45)
[2017-01-22] MEDS ORDERED: ACETAMINOPHEN 325 MG TAB PO PRN (15:45)
[2017-01-22] MEDS ORDERED: ALUMINUM/MAGNESIUM/SIMETH 30 ML CUP PO PRN (15:45)
[2017-01-22] MEDS ORDERED: NICOTINE 21 MG/24 HR PATCH T-DERMAL SCH (16:00)
[2017-01-22 18:33] VITALS: BP 99/58; PULSE 82; RESP 16; TEMP 97.8; O2SAT 98
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
[2017-01-22] MEDS: PROPRANOLOL HCL 40 MG TAB PO SCH (20:55)
[2017-01-22] MEDS: clonazePAM 1 MG TAB PO SCH (20:55)
[2017-01-22] MEDS: OLANZapine ODT 10 MG TAB PO SCH (20:55)
[2017-01-22] MEDS: METOPROLOL TARTRATE 50 MG TAB PO SCH (20:56)
[2017-01-22] MEDS: LORazepam 1 MG TAB PO PRN (20:56)
[2017-01-22] MEDS: QUEtiapine FUMARATE 100 MG TAB PO SCH (20:56)
[2017-01-22] MEDS ORDERED: REMOVE OLD NICOTINE PATCH T-DERMAL SCH (21:00)
[2017-01-23 06:03] VITALS: BP 108/61; PULSE 79; RESP 16; TEMP 97.5; O2SAT 96
[2017-01-23 07:55] LABS: ANION GAP 5 MEQ/L (5-15); BLOOD UREA NITROGEN 12 MG/DL (7-18); CHLORIDE 106 MEQ/L (98-107); GLOMERULAR FILTRATION RATE 110 ML/MIN (>89); HDL CHOLESTEROL 34.9 MG/DL (40.0-60.0); LDL CHOLESTEROL 94 MG/DL (0-99); POTASSIUM 4.1 MEQ/L (3.5-5.1); SODIUM (NA) 141 MEQ/L (136-145)
[2017-01-23] MEDS: METOPROLOL TARTRATE 50 MG TAB PO SCH ×2 (08:21→21:47)
[2017-01-23] MEDS: DEXTROAMPHETAMINE/AMPHETAMINE XR 30 MG CAP PO SCH (08:21)
[2017-01-23 16:22] VITALS: BP 124/78; PULSE 95; RESP 16; TEMP 97.7; O2SAT 96
[2017-01-23 19:03] LABS: HEMOGLOBIN A1a 0.9 %; HEMOGLOBIN A1b 1.5 %; HEMOGLOBIN Ao 86.8 %; HEMOGLOBIN LA1C 1.8 %; HEMOGLOBIN P3 3.4 %
[2017-01-23] MEDS: LORazepam 1 MG TAB PO PRN (19:59)
[2017-01-23] MEDS: clonazePAM 1 MG TAB PO SCH (21:47)
[2017-01-23] MEDS: PROPRANOLOL HCL 40 MG TAB PO SCH (21:47)
[2017-01-23] MEDS: QUEtiapine FUMARATE 100 MG TAB PO SCH (21:47)
[2017-01-23] MEDS: OLANZapine ODT 10 MG TAB PO SCH (21:47)
[2017-01-24 05:57] VITALS: BP 103/53; PULSE 86; RESP 18; TEMP 97.9; O2SAT 99
[2017-01-24] MEDS: METOPROLOL TARTRATE 50 MG TAB PO SCH ×2 (08:10→21:00)
[2017-01-24] MEDS: DEXTROAMPHETAMINE/AMPHETAMINE XR 30 MG CAP PO SCH (08:10)
[2017-01-24] MEDS ORDERED: PRISTIQ 25 MG PO SCH (09:00)
[2017-01-24] MEDS: PRISTIQ 25 MG PO SCH (13:00)
[2017-01-24 17:00] VITALS: BP 125/66; PULSE 80; RESP 18; TEMP 98.9
[2017-01-24] MEDS: LORazepam 2 MG/ML VIAL IM PRN (21:30)
[2017-01-24] MEDS: clonazePAM 1 MG TAB PO SCH (21:31)
[2017-01-24] MEDS: QUEtiapine FUMARATE 100 MG TAB PO SCH (21:31)
[2017-01-24] MEDS: PROPRANOLOL HCL 40 MG TAB PO SCH (21:31)
[2017-01-24] MEDS: OLANZapine ODT 10 MG TAB PO SCH (21:31)
[2017-01-25 06:32] VITALS: BP 109/59; PULSE 71; RESP 16; TEMP 97.7; O2SAT 97
[2017-01-25] MEDS: METOPROLOL TARTRATE 50 MG TAB PO SCH ×2 (09:00→21:04)
[2017-01-25] MEDS: DEXTROAMPHETAMINE/AMPHETAMINE XR 30 MG CAP PO SCH (09:00)
[2017-01-25] MEDS: PRISTIQ 25 MG PO SCH (09:00)
[2017-01-25 17:17] VITALS: BP 106/59; PULSE 88; RESP 17; TEMP 98.6; O2SAT 95
[2017-01-25] MEDS: LORazepam 1 MG TAB PO PRN (17:26)
[2017-01-25] MEDS: clonazePAM 1 MG TAB PO SCH (21:04)
[2017-01-25] MEDS: QUEtiapine FUMARATE 100 MG TAB PO SCH (21:04)
[2017-01-25] MEDS: PROPRANOLOL HCL 40 MG TAB PO SCH (21:04)
[2017-01-25] MEDS: OLANZapine ODT 10 MG TAB PO SCH (21:04)
[2017-01-26] MEDS: DEXTROAMPHETAMINE/AMPHETAMINE XR 30 MG CAP PO SCH (08:44)
[2017-01-26] MEDS: METOPROLOL TARTRATE 50 MG TAB PO SCH ×2 (08:44→20:09)
[2017-01-26] MEDS: LORazepam 1 MG TAB PO PRN ×2 (08:45→16:30)
[2017-01-26] MEDS ORDERED: ADDE30XR PO (17:14)
[2017-01-26] MEDS ORDERED: PROP40TA3 PO (17:14)
[2017-01-26] MEDS ORDERED: QUET1TAB8 PO (17:14)
[2017-01-26] MEDS ORDERED: CLON1 PO (17:14)
[2017-01-26] MEDS ORDERED: OLANZ10 PO (17:14)
[2017-01-26] MEDS ORDERED: METO-309 PO (17:14)
[2017-01-26] MEDS: OLANZapine ODT 10 MG TAB PO SCH (20:08)
[2017-01-26] MEDS: clonazePAM 1 MG TAB PO SCH (20:09)
[2017-01-26] MEDS: PROPRANOLOL HCL 40 MG TAB PO SCH (20:09)
[2017-01-26] MEDS: QUEtiapine FUMARATE 100 MG TAB PO SCH (20:10)
[2017-01-26] MEDS: LORazepam 2 MG/ML VIAL IM PRN (20:50)
[2017-01-27 05:52] VITALS: BP 98/53; PULSE 82; RESP 16; TEMP 97.6; O2SAT 95
[2017-01-27 08:30] VITALS: BP 105/55; PULSE 94
[2017-01-27] MEDS: DEXTROAMPHETAMINE/AMPHETAMINE XR 30 MG CAP PO SCH (08:57)
[2017-01-27] MEDS: METOPROLOL TARTRATE 50 MG TAB PO SCH (08:57)
[2017-01-27] MEDS: LORazepam 1 MG TAB PO PRN (09:00)
--- NOTE | 2017-01-27 14:09 | PD.CONS ---
Provisional Diagnosis Admission Date Jan 22, 2017 at 14:43 [place] I. Borderline personality disorder f 60.3, bipolar disorder current episode mixed f 31.60 History of Present Illness Service Psychiatry Consult Requested By Dr. cárdenas Reason for Consult Second opinion discharge Primary Care Physician Liya Waters MD HPI Patient is a 36-year-old white female admitted to Dr. cárdenas's service under Adams act. Dr. stallings admission note diagnosis and recommendations have been reviewed and agreed with. It appears patient's behaviors are essentially a consequence of her severe borderline personality disorder. There is a marked manipulation noted with this, as evidenced by her behavior this morning after being told by that she was being discharged today area and patient was seen by me today as she was being released from 4-point restraints. Patient stating she is calm" full control" of her behaviors. This is reflective of her behaviors throughout this admission. That when her needs are not met within her time frame she acts out. I have discussed this with Dr. cárdenas, I agree with him that extending this patient's inpatient stay would only aggravate her behaviors, and will not benefit her or improve her condition in any way. Incidentally aggravate the borderline personality behavior issues. Thus I agree with Dr. cárdenas that the patient should be discharged today to herself. With follow-up Dr. Hernández through [facility] Review of Systems Constitutional: DENIES: Diaphoretic episodes, Fatigue, Fever, Weight gain, Weight loss, Chills, Dizziness, Change in appetite, Night Sweats Endocrine: DENIES: Abnorml menstrual pattern, Heat/cold intolerance, Polydipsia , Polyuria, Polyphagia Eyes: DENIES: Blurred vision, Diplopia, Eye inflammation, Eye pain, Vision loss , Photosensitivity, Double Vision Ears, nose, mouth, throat: DENIES: Tinnitus, Hearing loss, Vertigo, Nasal discharge, Oral lesions, Throat pain, Hoarseness, Ear Pain, Running Nose, Epistaxis, Sinus Pain, Toothache, Odynophagia Respiratory: DENIES: Apneas, Cough, Snoring, Wheezing, Hemoptysis, Sputum production, Shortness of breath Cardiovascular: DENIES: Chest pain, Palpitations, Syncope, Dyspnea on Exertion , PND, Lower Extremity Edema, Orthopnea, Claudication Gastrointestinal: DENIES: Abdominal pain, Black stools, Bloody stools, Constipation, Diarrhea, Nausea, Vomiting, Difficulty Swallowing, Anorexia Genitourinary: DENIES: Abnormal vaginal bleeding, Dysmenorrhea, Dyspareunia, Sexual dysfunction, Urinary frequency, Urinary incontinence, Urgency, Hematuria , Dysuria, Nocturia, Vaginal discharge Musculoskeletal: DENIES: Joint pain, Muscle aches, Stiffness, Joint Swelling, Back pain, Neck pain Integumentary: DENIES: Abnormal pigmentation, Pruritus, Rash, Nail changes, Breast masses, Breast skin changes, Nipple discharge Hematologic/lymphatic: DENIES: Bruising, Lymphadenopathy Immunologic/allergic: DENIES: Eczema, Urticaria Neurologic: DENIES: Abnormal gait, Headache, Localized weakness, Paresthesias, Seizures, Speech Problems, Tremor, Poor Balance Psychiatric: DENIES: Anxiety, Confusion, Mood changes, Depression, Hallucinations, Agitation, Suicidal Ideation, Homicidal Ideation, Delusions Past Family Social History Coded Allergies: Abilify (Verified Allergy, Severe, Confusion, 01/20/17) Geodon (Verified Allergy, Severe, Rash, 01/20/17) Morphine (Verified Allergy, Severe, "ILL", 01/20/17) Opiate Agonists (Narcotics) (Verified Allergy, Severe, 01/20/17) SSRI-Serotonin Reuptake Inhib (Verified Allergy, Severe, 01/20/17) Sulfa (Verified Allergy, Severe, RASH-HIVES, 01/20/17) Active Scripts Quetiapine 100 Mg [id number] Mg PO HS #6 TAB Ref 1 Prov:Manpreet Cárdenas MD 01/26/17 Propranolol 40 Mg Tab40 Mg PO HS #6 TAB Ref 1 Prov:Manpreet Cárdenas MD 01/26/17 Olanzapine Odt (Zyprexa Zydis)10 Mg Tab10 Mg PO HS #6 TAB Ref 1 Prov:Manpreet Cárdenas MD 01/26/17 Metoprolol Tartrate (Lopressor)50 Mg Tab50 Mg PO BID #10 TAB Ref 1 Prov:Manpreet Cárdenas MD 01/26/17 Clonazepam (Klonopin)1 Mg Tab2 Mg PO HS #10 TAB Ref 1 Prov:Manpreet Cárdenas MD 01/26/17 Amphetamine-Dextroamphetamine ER 24 HR (Adderall Xr 24 HR)30 Mg Cap30 Mg PO DAILY #7 CAP Prov:Manpreet Cárdenas MD 01/26/17 Reported Medications Clonazepam (Klonopin)2 Mg Tab2 Mg PO HS #60 TAB Ref 0 01/21/17 Metoprolol Tartrate 50 Mg Tab50 Mg PO BID #60 TAB Ref 0 01/17/17 Olanzapine (Zyprexa)10 Mg Tab10 Mg PO HS #30 TAB Ref 0 01/17/17 Quetiapine (Seroquel)100 Mg [id number] Mg PO HS #30 TAB Ref 0 12/24/16 Amphetamine-Dextroamphetamine ER 24 HR (Adderall Xr 24 HR)30 Mg Cap30 Mg PO DAILY #30 CAP Ref 0 Once daily in the morning. 12/24/16 Propranolol 40 Mg Tab40 Mg PO HS #60 TAB Ref 0 12/23/16 Discontinued Reported Medications Cyclobenzaprine (Flexeril)10 Mg Tab10 Mg PO HS #90 TAB Ref 0 12/23/16 Current Medications Medications (Trade) Dose Ordered Sig/Dorinda Route Start Time Stop Time Status Last Admin (Inderal) 40 mg HS PO 01/22/17 21:00 01/26/17 20:09 (KlonoPIN) 2 mg HS PO 01/22/17 21:00 01/26/17 20:09 (Lopressor) 50 mg BID PO 01/22/17 21:00 01/27/17 08:57 (SEROquel) 100 mg HS PO 01/22/17 21:00 01/26/17 20:10 (Adderall Xr) 30 mg DAILY PO 01/23/17 09:00 01/27/17 08:57 (Ativan) 1 mg Q6H PRN PO 01/22/17 15:45 01/27/17 09:00 (Ativan Inj) 1 mg Q6H PRN IM 01/22/17 15:45 01/26/17 20:50 (Tylenol) 650 mg Q4H PRN PO 01/22/17 15:45 (Milk Of Magnesia Liq) 30 ml DAILY PRN PO 01/22/17 15:45 (Mag-Al Plus Susp Liq) 30 ml Q6H PRN PO 01/22/17 15:45 (ZyPREXA ZYDIS ODT) 10 mg HS PO 01/22/17 21:00 01/26/17 20:08 Physical Exam Vital Signs Vital Signs Date Time Temp Pulse Resp B/P Pulse Ox O2 Delivery O2 Flow Rate FiO2 01/27/17 08:30 94 105/55 01/27/17 05:52 97.6 16 95 Mental Status Examination Alert oriented thin slender white female guarded irritable demanding manipulative and entitled Appearance Clean nerat Speech: Unremarkable Orientation: x3 Thought Process: Logical Thought Content: Unremarkable, Other (manipulative) Language [place] [employer] Knowledge Fair Hallucination Type: None Attention and Concentration: Other (fair) Suicidal Ideation: No (denies) Previous Suicide Attempts: Yes Homicidal Ideation: No (denies) Previous Homicide Attempts: No Insight: Poor Judgement: Poor Affect: Other (slight increase range and intensity) Mood: Euthymic, Oppositional, Irritable Motor Activity: Normal gait Assessment & Plan Problem List: (1) Borderline personality disorder ICD Code: F60.3 (2) Bipolar disorder, current episode mixed ICD Code: F31.60 Assessment & Plan Estimated LOS: days I agree with Dr. cárdenas's assessment and decision to discharge patient today Discharge Planning Follow-up Dr. Hernández through [facility] Request HC Surrog/Guard Advoc?: No Abhijit Dunaway MD Jan 27, 2017 14:09
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
== END 2017-01-27 14:05 | disposition home or self-care (01) | DRG 885 ==
LOC: H270 14:43
PROVIDERS: ADMIT Psychiatry & Neurology Psychiatry; ATTEND Psychiatry & Neurology Psychiatry
DX: F31.9 Bipolar disorder, unspecified (principal); Z78.1 Physical restraint status; F60.3 Borderline personality disorder; F43.10 Post-traumatic stress disorder, unspecified; Z91.5 Personal history of self-harm
CPT/HCPCS: 80048; 80061; 83036; J2060

== ENCOUNTER 2017-09-04 12:28 | Emergency (ER) | payer OTHER ==
[~2017-09-04 12:28] MED LIST changes: +CLON1 PO; -CYCL1TAB29 PO; +METO-309 PO; +OLANZ10 PO; +QUET1TAB8 PO
[2017-09-04 12:32] VITALS: BP 124/74; PULSE 78; RESP 16; TEMP 98.3; O2SAT 96
[2017-09-04 14:14] LABS: AUTOMATED NEUTROPHIL # 4.7 TH/MM3 (1.8-7.7); BASOPHIL % 0.6 % (0.0-2.0); EOSINOPHIL # 0.3 TH/MM3 (0-0.4); EOSINOPHIL % 3.5 % (0.0-4.0); HEMATOCRIT 42.4 % (35.0-46.0); HEMO FLAGS DIFF FINAL; LYMPH % 29.3 % (9.0-44.0); LYMPHOCYTE # 2.3 TH/MM3 (1.0-4.8); MEAN CELL VOLUME 97.7 FL (80.0-100.0); MEAN CORPUSCULAR HEMOGLOBIN 32.4 PG (27.0-34.0); MEAN CORPUSCULAR HGB CONC 33.1 % (32.0-36.0); MONO % 6.2 % (0.0-8.0); NEUT % 60.4 % (16.0-70.0); PLATELET COUNT 238 TH/MM3 (150-450); RED BLOOD COUNT 4.33 MIL/MM3 (4.00-5.30); RED CELL DISTRIBUTION WIDTH 14.1 % (11.6-17.2); WHITE BLOOD COUNT 7.9 TH/MM3 (4.0-11.0)
[2017-09-04 14:44] LABS: ALT (GPT) 37 U/L (10-53); ANION GAP 6 MEQ/L (5-15); AST (GOT) 24 U/L (15-37); BICARBONATE 27.4 MEQ/L (21.0-32.0); BLOOD UREA NITROGEN 12 MG/DL (7-18); CHLORIDE 105 MEQ/L (98-107); GLOMERULAR FILTRATION RATE 93 ML/MIN (>89); POTASSIUM 4.1 MEQ/L (3.5-5.1); SODIUM (NA) 138 MEQ/L (136-145)
[2017-09-04 14:46] LABS: ALKALINE PHOSPHATASE 70 U/L (45-117); TOTAL BILIRUBIN ADULT 0.5 MG/DL (0.2-1.0)
[2017-09-05] MEDS ORDERED: ZYPR15TA PO (11:42)
--- NOTE | 2017-09-09 12:27 | PD ---
Physical Exam Date Seen by Provider: Sep 04, 2017 Narrative Patient is a 36-year-old sd female presenting voluntarily to the emergency department for psychiatric evaluation. Patient reports increased anxiety and suicidal ideations. She reports a previous suicide attempt. She reports current plan. Patient reports increased stressors. She denies any physical complaints at this time. Data Data Orders Orders Complete Blood Count With Diff (09/04/17 12:58) Comprehensive Metabolic Panel (09/04/17 12:58) Psych Screen (09/04/17 12:58) Drug Screen, Random Urine (09/04/17 12:58) Labs Laboratory Tests Test 09/04/17 13:45 White Blood Count 7.9 TH/MM3 Red Blood Count 4.33 MIL/MM3 Hemoglobin 14.0 GM/DL Hematocrit 42.4 % Mean Corpuscular Volume 97.7 FL Mean Corpuscular Hemoglobin 32.4 PG Mean Corpuscular Hemoglobin Concent 33.1 % Red Cell Distribution Width 14.1 % Platelet Count 238 TH/MM3 Mean Platelet Volume 9.3 FL Neutrophils (%) (Auto) 60.4 % Lymphocytes (%) (Auto) 29.3 % Monocytes (%) (Auto) 6.2 % Eosinophils (%) (Auto) 3.5 % Basophils (%) (Auto) 0.6 % Neutrophils # (Auto) 4.7 TH/MM3 Lymphocytes # (Auto) 2.3 TH/MM3 Monocytes # (Auto) 0.5 TH/MM3 Eosinophils # (Auto) 0.3 TH/MM3 Basophils # (Auto) 0.0 TH/MM3 CBC Comment DIFF FINAL Differential Comment Blood Urea Nitrogen 12 MG/DL Creatinine 0.72 MG/DL Random Glucose 83 MG/DL Total Protein 8.4 GM/DL Albumin 4.6 GM/DL Calcium Level 9.2 MG/DL Alkaline Phosphatase 70 U/L Aspartate Amino Transf (AST/SGOT) 24 U/L Alanine Aminotransferase (ALT/SGPT) 37 U/L Total Bilirubin 0.5 MG/DL Sodium Level 138 MEQ/L Potassium Level 4.1 MEQ/L Chloride Level 105 MEQ/L Carbon Dioxide Level 27.4 MEQ/L Anion Gap 6 MEQ/L Estimat Glomerular Filtration Rate 93 ML/MIN Urine Opiates Screen NEG Urine Barbiturates Screen NEG Urine Amphetamines Screen POS Urine Benzodiazepines Screen NEG Urine Cocaine Screen NEG Urine Cannabinoids Screen NEG MDM Medical Record Reviewed: Yes Supervised Visit with INOCENCIO: No Narrative Course Patient is a 36-year-old female that was seen in triage, presenting for psychiatric evaluation secondary to anxiety, depression and suicidal ideations. Protocols initiated in triage. Patient's vital signs are stable, she is awaiting bed placement. Diagnosis Primary Impression: Left against medical advice Disposition: 07 AGAINST MEDICAL ADVICE Liz Meadows Sep 09, 2017 12:27
== END 2017-09-04 16:31 | disposition left against medical advice (07) ==
LOC: NETRI 12:28
DX: F41.9 Anxiety disorder, unspecified (principal); F32.9 Major depressive disorder, single episode, unspecified; R45.851 Suicidal ideations; Z53.21 Procedure and treatment not carried out due to patient leaving prior to being seen by health care provider
CPT/HCPCS: 80053; 80307; 85025; 99283

== ENCOUNTER 2017-12-02 11:04 | Emergency (ER) | payer OTHER ==
[~2017-12-02] VITALS: Ht 167.6 cm; Wt 61.4 kg
[~2017-12-02 11:04] MED LIST changes: -KLON2TAB PO; -METO50TA PO; -OLANZ10 PO; -PROP40TA3 PO; -QUET1TAB8 PO; +ZYPR15TA PO
[2017-12-02 11:05] VITALS: BP 127/73; PULSE 91; RESP 18; TEMP 98.6; O2SAT 99
[2017-12-02 12:25] LABS: AUTOMATED NEUTROPHIL # 4.3 TH/MM3 (1.8-7.7); BASOPHIL % 0.8 % (0.0-2.0); EOSINOPHIL # 0.1 TH/MM3 (0-0.4); EOSINOPHIL % 1.6 % (0.0-4.0); HEMATOCRIT 37.5 % (35.0-46.0); HEMOGLOBIN 12.8 GM/DL (11.6-15.3); LYMPH % 27.3 % (9.0-44.0); LYMPHOCYTE # 1.8 TH/MM3 (1.0-4.8); MEAN CELL VOLUME 94.8 FL (80.0-100.0); MEAN CORPUSCULAR HEMOGLOBIN 32.5 PG (27.0-34.0); MEAN CORPUSCULAR HGB CONC 34.2 % (32.0-36.0); MEAN PLATELET VOLUME 9.3 FL (7.0-11.0); MONOCYTE # 0.3 TH/MM3 (0-0.9); NEUT % 65.3 % (16.0-70.0); PLATELET COUNT 260 TH/MM3 (150-450); RED BLOOD COUNT 3.95 MIL/MM3 (4.00-5.30); RED CELL DISTRIBUTION WIDTH 13.6 % (11.6-17.2); WHITE BLOOD COUNT 6.5 TH/MM3 (4.0-11.0)
[2017-12-02 12:33] LABS: BLOOD UREA NITROGEN 8 MG/DL (7-18); CALCIUM 9.3 MG/DL (8.5-10.1); CHLORIDE 106 MEQ/L (98-107); CREATININE 0.72 MG/DL (0.50-1.00); GLOMERULAR FILTRATION RATE 92 ML/MIN (>89); GLUCOSE,RANDOM 89 MG/DL (74-106); SODIUM (NA) 139 MEQ/L (136-145)
[2017-12-02] MEDS ORDERED: VITA500012 PO (13:53)
[2017-12-02] MEDS ORDERED: ATEN1TAB75 PO (13:53)
[2017-12-02] MEDS ORDERED: LORA-474 PO (13:53)
[2017-12-02] MEDS ORDERED: LITH300C2 PO (13:53)
[2017-12-02] MEDS ORDERED: OLAN20TA PO (13:53)
--- NOTE | 2017-12-02 13:59 | PD ---
HPI Chief Complaint: Psychiatric Symptoms Time Seen by Provider: 13:15 Travel History International Travel<30 days: No Contact w/Intl Traveler<30days: No Traveled to known affect area: No History of Present Illness HPI 37-year-old female presents to the emergency department, with history of bipolar disorder, stating that she is "going to hurt someone." She says her medications are not working. Reports suicidal ideation, but does not have a plan. Been having thoughts since . Thoughts were aggravated because she feels like no one cares and no one wants to help her. She called her psychiatrist for help and they said she had to wait until her next appointment. Has history of suicidal attempts. Denies homicidal ideations. Reports feeling ghosts and seeing demons. Denies illicit drug use. Denies alcohol or tobacco use. No known relieving factors. Symptoms are moderate to severe in severity. Is prescribed Adderall. Primary care provider is Dr. Stone. Multiple allergies as listed on the chart. History of SVT and takes atenolol at HS. Has no other emergent medical complaints. Denies chest pain, shortness breath, abdominal pain, vomiting, fevers, change in urine or stool. No other modifying factors or associated signs and symptoms. PFSH Past Medical History ADD: Yes Arthritis: No Asthma: No Autoimmune Disease: No Blood Disorders: No Bipolar Disorder: Yes (MANIC) Anxiety: Yes Depression: Yes Heart Rhythm Problems: Yes (SVT) Cardiovascular Problems: Yes (per pt heart concerns ) High Cholesterol: No Chemotherapy: No Chest Pain: No Congestive Heart Failure: No COPD: No Cerebrovascular Accident: No Diabetes: No (per pt ) Diminished Hearing: No Endocrine: Yes Gastrointestinal Disorders: Yes (anorexia) Glaucoma: No Genitourinary: No Headaches: Yes (per pt has migraines frequently) Hypertension: No Immune Disorder: No Implanted Vascular Access Dvce: No Kidney Stones: No Musculoskeletal: No Neurologic: No Psychiatric: Yes (hx of Bipolar/Borderline D/O) Reproductive: No Respiratory: No Immunizations Current: Yes Migraines: Yes (patient takes Flexeril) Myocardial Infarction: No Radiation Therapy: No Renal Failure: No Seizures: No (per pt) Sickle Cell Disease: No Sleep Apnea: No Thyroid Disease: No ?: Not : 0 Past Surgical History Surgical History: No Previous Surgery Abdominal Surgery: No AICD: No Cardiac Surgery: Yes (electrophsyology study) Ear Surgery: No Endocrine Surgery: No Eye Surgery: No Genitourinary Surgery: No Gynecologic Surgery: No Insulin Pump: No Neurologic Surgery: No Oral Surgery: No Pacemaker: No Thoracic Surgery: No Other Surgery: Yes (SEE H&P FROM E.D.) Social History Alcohol Use: No Tobacco Use: No Substance Use: Yes (very long time ago) Allergies-Medications (Allergen,Severity, Reaction): Coded Allergies: Opioids - Morphine Analogues (Unverified Allergy, Severe, 12/02/17) Opioids-Meperidine and Related (Unverified Allergy, Severe, 12/02/17) Opioids-Methadone and Related (Unverified Allergy, Severe, 12/02/17) Sulfa (Sulfonamide Antibiotics) (Unverified Allergy, Severe, RASH-HIVES, ) aripiprazole (Unverified Allergy, Severe, Confusion, 12/02/17) citalopram (Unverified Allergy, Severe, 12/02/17) duloxetine (Unverified Allergy, Severe, 12/02/17) fluvoxamine (Unverified Allergy, Severe, 12/02/17) morphine (Unverified Allergy, Severe, "ILL", 12/02/17) paroxetine (Unverified Allergy, Severe, 12/02/17) sertraline (Unverified Allergy, Severe, 12/02/17) venlafaxine (Unverified Allergy, Severe, 12/02/17) ziprasidone (Unverified Allergy, Severe, Rash, 12/02/17) Reported Meds & Prescriptions Reported Meds & Active Scripts Active Lopressor (Metoprolol Tartrate) 50 Mg Tab 50 Mg PO BID Adderall Xr 24 HR (Amphetamine/Dextroamphetamine) 30 Mg Cap 30 Mg PO DAILY Reported Ativan (Lorazepam) 1 Mg Tab 0.5-1 Mg PO BID PRN Tenormin (Atenolol) 100 Mg Tab 100 Mg PO DAILY Ergocalciferol 50,000 Unit Cap 50,000 Units PO WEEKLY [place] Carbonate 300 Mg Cap 300 Mg PO DAILY Olanzapine 20 Mg Tab 20 Mg PO HS Review of Systems Except as stated in HPI: all other systems reviewed are Neg Physical Exam Narrative GENERAL: Well-nourished, well-developed female patient, in no acute distress SKIN: Warm and dry. HEAD: Atraumatic. Normocephalic. EYES: Pupils equal and round. ENT: Mucosa pink and moist. NECK: Supple. Trachea midline. CARDIOVASCULAR: Regular rate and rhythm. No murmur appreciated. RESPIRATORY: No accessory muscle use. Clear to auscultation. Breath sounds equal bilaterally. GASTROINTESTINAL: Abdomen soft, non-tender, nondistended. Hepatic and splenic margins not palpable. Bowel sounds are active 4 quadrants. MUSCULOSKELETAL: No obvious deformities. No clubbing. No cyanosis. No edema. BACK: No CVA tenderness. NEUROLOGICAL: Awake and alert. Oriented 3. No obvious cranial nerve deficits. Motor grossly within normal limits. Normal speech. Moves all extremities. 5/5 strength to all extremities. PSYCHIATRIC: No delusional thought processes. No hallucinations. Data Data Last Documented VS Vital Signs Date Time Temp Pulse Resp B/P (MAP) Pulse Ox O2 Delivery O2 Flow Rate FiO2 12/02/17 11:05 98.6 91 18 127/73 (91) 99 Room Air Orders Orders Complete Blood Count With Diff (12/02/17 11:18) Thyroid Stimulating Hormone (12/02/17 11:18) Basic Metabolic Panel (Bmp) (12/02/17 11:18) Ed Urine Pregnancytest Poc (12/02/17 11:18) Psych Screen (12/02/17 11:18) Drug Screen, Random Urine (12/02/17 11:18) Alcohol (Ethanol) (12/02/17 11:18) Labs Laboratory Tests Test 12/02/17 11:40 12/02/17 11:47 Urine Opiates Screen NEG Urine Barbiturates Screen NEG Urine Amphetamines Screen POS Urine Benzodiazepines Screen NEG Urine Cocaine Screen NEG Urine Cannabinoids Screen NEG White Blood Count 6.5 TH/MM3 Red Blood Count 3.95 MIL/MM3 Hemoglobin 12.8 GM/DL Hematocrit 37.5 % Mean Corpuscular Volume 94.8 FL Mean Corpuscular Hemoglobin 32.5 PG Mean Corpuscular Hemoglobin Concent 34.2 % Red Cell Distribution Width 13.6 % Platelet Count 260 TH/MM3 Mean Platelet Volume 9.3 FL Neutrophils (%) (Auto) 65.3 % Lymphocytes (%) (Auto) 27.3 % Monocytes (%) (Auto) 5.0 % Eosinophils (%) (Auto) 1.6 % Basophils (%) (Auto) 0.8 % Neutrophils # (Auto) 4.3 TH/MM3 Lymphocytes # (Auto) 1.8 TH/MM3 Monocytes # (Auto) 0.3 TH/MM3 Eosinophils # (Auto) 0.1 TH/MM3 Basophils # (Auto) 0.0 TH/MM3 CBC Comment DIFF FINAL Differential Comment Blood Urea Nitrogen 8 MG/DL Creatinine 0.72 MG/DL Random Glucose 89 MG/DL Calcium Level 9.3 MG/DL Sodium Level 139 MEQ/L Potassium Level 4.0 MEQ/L Chloride Level 106 MEQ/L Carbon Dioxide Level 29.0 MEQ/L Anion Gap 4 MEQ/L Estimat Glomerular Filtration Rate 92 ML/MIN Thyroid Stimulating Hormone 3rd Gen 2.160 uIU/ML Ethyl Alcohol Level LESS THAN 3 MG/DL MDM Medical Decision Making Medical Screen Exam Complete: Yes Emergency Medical Condition: Yes Medical Record Reviewed: Yes Differential Diagnosis Depression, psychosis, bipolar disorder, suicidal threat, suicidal ideation, medical clearance for psychiatric evaluation Narrative Course Patient presents voluntarily. Adams act was initiated as I feel the patient is a threat to herself. Physical examination and vital signs are essentially unremarkable. Patient has no medical complaints to report. Psych screen has been ordered. If the laboratory results are unremarkable, the patient will be medically cleared for psychiatric evaluation and disposition. Diagnosis Primary Impression: Medical clearance for psychiatric admission Condition: Stable Chelsy Mccoy Dec 02, 2017 13:59
[2017-12-02 18:14] VITALS: BP 131/59; PULSE 86; RESP 18; TEMP 97.9; O2SAT 98
[2017-12-02] MEDS ORDERED: ATENOLOL 100 MG TAB PO SCH (21:00)
[2017-12-02] MEDS: ACETAMINOPHEN 500 MG CPLT PO PRN (21:11)
[2017-12-02 22:46] VITALS: BP 132/59; PULSE 68; RESP 17; TEMP 98; O2SAT 99
[2017-12-03 06:15] VITALS: BP 102/59; PULSE 66; RESP 16; O2SAT 98
[2017-12-03] MEDS: ACETAMINOPHEN 500 MG CPLT PO PRN (08:12)
[2017-12-03] MEDS ORDERED: ZOFR4TAB PO (10:02)
--- NOTE | 2017-12-03 10:05 | PD ---
History of Present Illness Chief Complaint: Psychiatric Symptoms Time Seen by Provider: 10:01 Travel History International Travel<30 Days: No Contact w/Intl Traveler<30days: No Known affected area: No Legal Status Legal Status: Adams Act Adams Act Signed By: DR BLANKENSHIP, ED DOC History of Present Illness: 37-year-old female known to this physician for almost 20 years. She has no suicidal or homicidal ideation, plan or intent. She has no psychotic symptoms and her cognition is intact. She is verbally emily for safety and is competent to do so. She has an appointment with her outpatient psychiatrist this afternoon at 5 PM. PFSH Past Medical History ADD: Yes Arthritis: No Asthma: No Autoimmune Disease: No Blood Disorders: No Bipolar Disorder: Yes (MANIC) Anxiety: Yes Depression: Yes Heart Rhythm Problems: Yes (SVT) Cardiovascular Problems: Yes (per pt heart concerns ) High Cholesterol: No Chemotherapy: No Chest Pain: No Congestive Heart Failure: No COPD: No Cerebrovascular Accident: No Diabetes: No (per pt ) Diminished Hearing: No Endocrine: Yes Gastrointestinal Disorders: Yes (anorexia) Glaucoma: No Genitourinary: No Headaches: Yes (per pt has migraines frequently) Hypertension: No Immune Disorder: No Implanted Vascular Access Dvce: No Kidney Stones: No Musculoskeletal: No Neurologic: No Psychiatric: Yes (hx of Bipolar/Borderline D/O) Reproductive: No Respiratory: No Immunizations Current: Yes Migraines: Yes (patient takes Flexeril) Myocardial Infarction: No Radiation Therapy: No Renal Failure: No Seizures: No (per pt) Sickle Cell Disease: No Sleep Apnea: No Thyroid Disease: No ?: Not : 0 Past Surgical History Surgical History: No Previous Surgery Abdominal Surgery: No AICD: No Cardiac Surgery: Yes (electrophsyology study) Ear Surgery: No Endocrine Surgery: No Eye Surgery: No Genitourinary Surgery: No Gynecologic Surgery: No Insulin Pump: No Neurologic Surgery: No Oral Surgery: No Pacemaker: No Thoracic Surgery: No Other Surgery: Yes (SEE H&P FROM E.D.) Psychiatric History Psychiatric History Hx Psychiatric Treatment: Patient has an extensive history of psychiatric care. Patient was hospitialized at [facility], here at [place], last visit was FOR REPORTED SUICIDE ATTEMPT NEFSH. Patient sees Dr. Hernández from [facility] for outpatient services. History of Inpatient Treatment: Yes Guns or firearms in home: No Social History Hx Alcohol Use: No Hx Tobacco Use: No Hx Substance Use: No Hx of Substance Use Treatment: No Allergies-Medications (Allergen,Severity, Reaction): Coded Allergies: Opioids - Morphine Analogues (Unverified Allergy, Severe, 12/02/17) Opioids-Meperidine and Related (Unverified Allergy, Severe, 12/02/17) Opioids-Methadone and Related (Unverified Allergy, Severe, 12/02/17) Sulfa (Sulfonamide Antibiotics) (Unverified Allergy, Severe, RASH-HIVES, ) aripiprazole (Unverified Allergy, Severe, Confusion, 12/02/17) citalopram (Unverified Allergy, Severe, 12/02/17) duloxetine (Unverified Allergy, Severe, 12/02/17) fluvoxamine (Unverified Allergy, Severe, 12/02/17) morphine (Unverified Allergy, Severe, "ILL", 12/02/17) paroxetine (Unverified Allergy, Severe, 12/02/17) sertraline (Unverified Allergy, Severe, 12/02/17) venlafaxine (Unverified Allergy, Severe, 12/02/17) ziprasidone (Unverified Allergy, Severe, Rash, 12/02/17) Reported Meds & Prescriptions Reported Meds & Active Scripts Active Zofran (Ondansetron HCl) 4 Mg Tab 4 Mg PO Q12HR PRN Lopressor (Metoprolol Tartrate) 50 Mg Tab 50 Mg PO BID Adderall Xr 24 HR (Amphetamine/Dextroamphetamine) 30 Mg Cap 30 Mg PO DAILY Reported Ativan (Lorazepam) 1 Mg Tab 0.5-1 Mg PO BID PRN Tenormin (Atenolol) 100 Mg Tab 100 Mg PO DAILY Ergocalciferol 50,000 Unit Cap 50,000 Units PO WEEKLY [place] Carbonate 300 Mg Cap 300 Mg PO DAILY Olanzapine 20 Mg Tab 20 Mg PO HS Review of Systems Psychiatric: COMPLAINS OF: Anxiety Except as stated in HPI: all other systems reviewed are Neg Mental Status Examination Appearance: Appropriate Consciousness: Alert Orientation: x4 Motor Activity: Normal gait Speech: Unremarkable Language: Adequate Fund of Knowledge: Adequate Attention and Concentration: Adequate Memory: Unremarkable Mood: Appropriate Affect: Appropriate Thought Process & Associations: Intact Thought Content: Appropriate Hallucination Type: None Delusion Type: None Suicidal Ideation: No Suicidal Plan: No Suicidal Intention: No Homicidal Ideation: No Homicidal Plan: No Homicidal Intention: No Insight: Adequate Judgment: Adequate MDM Medical Decision Making Medical Record Reviewed: Yes Assessment/Plan Patient interviewed at bedside. Electronic medical record reviewed. Case discussed with nurse Jesús. She does not meet criteria for Adams act or involuntary psychiatric hospitalization. She would like to be discharged home and see her outpatient psychiatrist this afternoon at [facility]. Orders Orders Complete Blood Count With Diff (12/02/17 11:18) Thyroid Stimulating Hormone (12/02/17 11:18) Basic Metabolic Panel (Bmp) (12/02/17 11:18) Ed Urine Pregnancytest Poc (12/02/17 11:18) Psych Screen (12/02/17 11:18) Drug Screen, Random Urine (12/02/17 11:18) Alcohol (Ethanol) (12/02/17 11:18) Atenolol (Tenormin) (12/02/17 21:00) Diet Regular Basic (12/02/17 Dinner) Acetaminophen (Tylenol) (12/02/17 21:00) Diet Regular Basic (12/03/17 Breakfast) Diet Regular Basic (12/03/17 Lunch) Results Vital Signs Date Time Temp Pulse Resp B/P (MAP) Pulse Ox O2 Delivery O2 Flow Rate FiO2 12/03/17 06:15 66 16 102/59 (73) 98 Room Air 12/02/17 22:46 98.0 68 17 132/59 (83) 99 Room Air 12/02/17 18:14 97.9 86 18 131/59 (83) 98 Room Air 12/02/17 11:05 98.6 91 18 127/73 (91) 99 Room Air Laboratory Tests Test 12/02/17 11:40 12/02/17 11:47 Urine Opiates Screen NEG Urine Barbiturates Screen NEG Urine Amphetamines Screen POS Urine Benzodiazepines Screen NEG Urine Cocaine Screen NEG Urine Cannabinoids Screen NEG White Blood Count 6.5 Red Blood Count 3.95 Hemoglobin 12.8 Hematocrit 37.5 Mean Corpuscular Volume 94.8 Mean Corpuscular Hemoglobin 32.5 Mean Corpuscular Hemoglobin Concent 34.2 Red Cell Distribution Width 13.6 Platelet Count 260 Mean Platelet Volume 9.3 Neutrophils (%) (Auto) 65.3 Lymphocytes (%) (Auto) 27.3 Monocytes (%) (Auto) 5.0 Eosinophils (%) (Auto) 1.6 Basophils (%) (Auto) 0.8 Neutrophils # (Auto) 4.3 Lymphocytes # (Auto) 1.8 Monocytes # (Auto) 0.3 Eosinophils # (Auto) 0.1 Basophils # (Auto) 0.0 CBC Comment DIFF FINAL Differential Comment Blood Urea Nitrogen 8 Creatinine 0.72 Random Glucose 89 Calcium Level 9.3 Sodium Level 139 Potassium Level 4.0 Chloride Level 106 Carbon Dioxide Level 29.0 Anion Gap 4 Estimat Glomerular Filtration Rate 92 Thyroid Stimulating Hormone 3rd Gen 2.160 Ethyl Alcohol Level LESS THAN 3 Diagnosis Primary Impression: Adjustment disorder with mixed disturbance of emotions and conduct Prescriptions Ondansetron (Zofran) 4 Mg Tab 4 MG PO Q12HR Y for NAUSEA OR VOMITING, #10 TAB 0 Refills Prov: Gerry Harris MD 12/03/17 Condition: Stable Gerry Harris MD Dec 03, 2017 10:05
--- NOTE | 2017-12-03 10:24 | PD ---
Physical Exam Time Seen by Provider: 10:[address] Harris has evaluated the patient and cleared the patient for discharge. Data Data Last Documented VS Vital Signs Date Time Temp Pulse Resp B/P (MAP) Pulse Ox O2 Delivery O2 Flow Rate FiO2 12/03/17 06:15 66 16 102/59 (73) 98 Room Air 12/02/17 22:46 98.0 Orders Orders Complete Blood Count With Diff (12/02/17 11:18) Thyroid Stimulating Hormone (12/02/17 11:18) Basic Metabolic Panel (Bmp) (12/02/17 11:18) Ed Urine Pregnancytest Poc (12/02/17 11:18) Psych Screen (12/02/17 11:18) Drug Screen, Random Urine (12/02/17 11:18) Alcohol (Ethanol) (12/02/17 11:18) Atenolol (Tenormin) (12/02/17 21:00) Diet Regular Basic (12/02/17 Dinner) Acetaminophen (Tylenol) (12/02/17 21:00) Diet Regular Basic (12/03/17 Breakfast) Diet Regular Basic (12/03/17 Lunch) Labs Laboratory Tests Test 12/02/17 11:40 12/02/17 11:47 Urine Opiates Screen NEG Urine Barbiturates Screen NEG Urine Amphetamines Screen POS Urine Benzodiazepines Screen NEG Urine Cocaine Screen NEG Urine Cannabinoids Screen NEG White Blood Count 6.5 TH/MM3 Red Blood Count 3.95 MIL/MM3 Hemoglobin 12.8 GM/DL Hematocrit 37.5 % Mean Corpuscular Volume 94.8 FL Mean Corpuscular Hemoglobin 32.5 PG Mean Corpuscular Hemoglobin Concent 34.2 % Red Cell Distribution Width 13.6 % Platelet Count 260 TH/MM3 Mean Platelet Volume 9.3 FL Neutrophils (%) (Auto) 65.3 % Lymphocytes (%) (Auto) 27.3 % Monocytes (%) (Auto) 5.0 % Eosinophils (%) (Auto) 1.6 % Basophils (%) (Auto) 0.8 % Neutrophils # (Auto) 4.3 TH/MM3 Lymphocytes # (Auto) 1.8 TH/MM3 Monocytes # (Auto) 0.3 TH/MM3 Eosinophils # (Auto) 0.1 TH/MM3 Basophils # (Auto) 0.0 TH/MM3 CBC Comment DIFF FINAL Differential Comment Blood Urea Nitrogen 8 MG/DL Creatinine 0.72 MG/DL Random Glucose 89 MG/DL Calcium Level 9.3 MG/DL Sodium Level 139 MEQ/L Potassium Level 4.0 MEQ/L Chloride Level 106 MEQ/L Carbon Dioxide Level 29.0 MEQ/L Anion Gap 4 MEQ/L Estimat Glomerular Filtration Rate 92 ML/MIN Thyroid Stimulating Hormone 3rd Gen 2.160 uIU/ML Ethyl Alcohol Level LESS THAN 3 MG/DL MDM Supervised Visit with INOCENCIO: No Narrative Course Dr. Harris has evaluated the patient and cleared the patient for discharge. Patient contracts safety. Denies suicidal or homicidal ideations. Patient will be provided community resource packet to [facility] for follow-up. Has friends and family for support. Patient was medically cleared by alternate provider prior to psych screening. Patient has been evaluated by psychiatry and and is now cleared for discharge. Diagnosis Primary Impression: Adjustment disorder with mixed disturbance of emotions and conduct Referrals: [facility] (Out patient) [facility] Primary Care Physician Psychiatrist Daphney RUDOLPH [facility] Patient Instructions: General Instructions, Mood Disorders (ED) Additional Instruction: Contract safety to your self and others Follow-up with psychiatry Follow-up with primary care provider Follow-up with Felix Blackburn Return to the emergency department immediately with worsening of symptoms Med/Other Pt SpecificInfo: Prescription(s) given Scripts Ondansetron (Zofran) 4 Mg Tab 4 MG PO Q12HR Y for NAUSEA OR VOMITING, #10 TAB 0 Refills Prov: Gerry Harris MD 12/03/17 Disposition: 01 DISCHARGE HOME Condition: Stable Chelsy Mccoy Dec 03, 2017 10:24
== END 2017-12-03 11:34 | disposition home or self-care (01) ==
LOC: NEPD 11:04 → NEPJ 12-03 11:34
DX: F43.25 Adjustment disorder with mixed disturbance of emotions and conduct (principal); F31.9 Bipolar disorder, unspecified; Z79.899 Other long term (current) drug therapy
CPT/HCPCS: 80048; 80307; 84443; 84703; 85025; 99284

== ENCOUNTER 2017-12-22 10:50 | Emergency (ER) | payer OTHER ==
[~2017-12-22] VITALS: Ht 167.6 cm; Wt 61.0 kg
[~2017-12-22 10:50] MED LIST changes: +ATEN1TAB75 PO; -CLON1 PO; +LITH300C2 PO; +LORA-474 PO; +OLAN20TA PO; -SERO100T PO; +VITA500012 PO; +ZOFR4TAB PO; -ZYPR10TA PO; -ZYPR15TA PO
[2017-12-22 11:13] VITALS: BP 113/82; PULSE 84; RESP 18; TEMP 99; O2SAT 97
[2017-12-22] MEDS ORDERED: RISP0.5T25 PO (11:22)
[2017-12-22] MEDS ORDERED: OLAN5TAB PO (11:22)
[2017-12-22] MEDS ORDERED: BENZ0.5T PO (11:23)
[2017-12-22 11:51] LABS: AUTOMATED NEUTROPHIL # 5.5 TH/MM3 (1.8-7.7); BASOPHIL # 0.1 TH/MM3 (0-0.2); BASOPHIL % 0.8 % (0.0-2.0); EOSINOPHIL # 0.1 TH/MM3 (0-0.4); EOSINOPHIL % 0.8 % (0.0-4.0); HEMATOCRIT 38.9 % (35.0-46.0); HEMOGLOBIN 13.4 GM/DL (11.6-15.3); LYMPH % 28.7 % (9.0-44.0); LYMPHOCYTE # 2.4 TH/MM3 (1.0-4.8); MEAN CELL VOLUME 96.6 FL (80.0-100.0); MEAN CORPUSCULAR HEMOGLOBIN 33.2 PG (27.0-34.0); MEAN CORPUSCULAR HGB CONC 34.4 % (32.0-36.0); MEAN PLATELET VOLUME 9.1 FL (7.0-11.0); MONO % 4.9 % (0.0-8.0); MONOCYTE # 0.4 TH/MM3 (0-0.9); NEUT % 64.8 % (16.0-70.0); PLATELET COUNT 242 TH/MM3 (150-450); RED BLOOD COUNT 4.03 MIL/MM3 (4.00-5.30); RED CELL DISTRIBUTION WIDTH 14.2 % (11.6-17.2); WHITE BLOOD COUNT 8.5 TH/MM3 (4.0-11.0)
[2017-12-22 12:07] LABS: ALBUMIN 4.4 GM/DL (3.4-5.0); ALT (GPT) 18 U/L (10-53); AST (GOT) 21 U/L (15-37); BICARBONATE 20.1 MEQ/L (21.0-32.0); BLOOD UREA NITROGEN 11 MG/DL (7-18); CALCIUM 9.1 MG/DL (8.5-10.1); CHLORIDE 107 MEQ/L (98-107); CREATININE 0.73 MG/DL (0.50-1.00); GLOMERULAR FILTRATION RATE 91 ML/MIN (>89); GLUCOSE,RANDOM 93 MG/DL (74-106); SODIUM (NA) 138 MEQ/L (136-145)
[2017-12-22] MEDS ORDERED: LORazepam 1 MG TAB PO ONE (12:15)
[2017-12-22] MEDS ORDERED: ACETAMINOPHEN 325 MG TAB PO ONE (12:15)
[2017-12-22 12:17] LABS: ACETAMINOPHEN LESS THAN 2.0 MCG/ML (10.0-30.0); ALKALINE PHOSPHATASE 68 U/L (45-117); TOTAL BILIRUBIN ADULT 0.3 MG/DL (0.2-1.0)
--- NOTE | 2017-12-22 12:18 | PD ---
HPI Chief Complaint: Psychiatric Symptoms Time Seen by Provider: 11:06 Travel History International Travel<30 days: No Contact w/Intl Traveler<30days: No Traveled to known affect area: No History of Present Illness HPI 37 year-old female presents to the emergency room under Adams act initiated by [employer]. Patient called her psychiatrist's office this morning to ask for medication adjustment because she was having episodes of rage and depression. Shortly afterward, the break out man showed up to her house and Adams acted her. Patient denies suicidal or homicidal ideations at this time. States it was a miscommunication and that she did not expect her psychiatrist to call the break out man on her. States this morning she was extremely angry, trashing her house and throwing glass everywhere but now she is calm down. Only other history of tachycardia for which she takes atenolol. PFSH Past Medical History ADD: Yes Arthritis: No Asthma: No Autoimmune Disease: No Blood Disorders: No Bipolar Disorder: Yes (MANIC) Anxiety: Yes Depression: Yes Heart Rhythm Problems: Yes (SVT) Cardiovascular Problems: Yes (per pt heart concerns ) High Cholesterol: No Chemotherapy: No Chest Pain: No Congestive Heart Failure: No COPD: No Cerebrovascular Accident: No Diabetes: No (per pt ) Diminished Hearing: No Endocrine: Yes Gastrointestinal Disorders: Yes (anorexia) Glaucoma: No Genitourinary: No Headaches: Yes (per pt has migraines frequently) Hypertension: No Immune Disorder: No Implanted Vascular Access Dvce: No Kidney Stones: No Musculoskeletal: No Neurologic: No Psychiatric: Yes (hx of Bipolar/Borderline D/O) Reproductive: No Respiratory: No Immunizations Current: Yes Migraines: Yes (patient takes Flexeril) Myocardial Infarction: No Radiation Therapy: No Renal Failure: No Seizures: No (per pt) Sickle Cell Disease: No Sleep Apnea: No Thyroid Disease: No Tetanus Vaccination: < 5 Years Influenza Vaccination: Yes ?: Not LMP: COUPLE WEEKS AGO : 0 Past Surgical History Abdominal Surgery: No AICD: No Cardiac Surgery: Yes (electrophsyology study) Ear Surgery: No Endocrine Surgery: No Eye Surgery: No Genitourinary Surgery: No Gynecologic Surgery: No Insulin Pump: No Neurologic Surgery: No Oral Surgery: No Pacemaker: No Thoracic Surgery: No Other Surgery: Yes (SEE H&P FROM E.D.) Social History Alcohol Use: No Tobacco Use: No Substance Use: No Allergies-Medications (Allergen,Severity, Reaction): Coded Allergies: Opioids - Morphine Analogues (Unverified Allergy, Severe, 12/22/17) Opioids-Meperidine and Related (Unverified Allergy, Severe, 12/22/17) Opioids-Methadone and Related (Unverified Allergy, Severe, 12/22/17) Sulfa (Sulfonamide Antibiotics) (Unverified Allergy, Severe, RASH-HIVES, ) aripiprazole (Unverified Allergy, Severe, Confusion, 12/22/17) citalopram (Unverified Allergy, Severe, 12/22/17) duloxetine (Unverified Allergy, Severe, 12/22/17) fluvoxamine (Unverified Allergy, Severe, 12/22/17) morphine (Unverified Allergy, Severe, "ILL", 12/22/17) paroxetine (Unverified Allergy, Severe, 12/22/17) sertraline (Unverified Allergy, Severe, 12/22/17) venlafaxine (Unverified Allergy, Severe, 12/22/17) ziprasidone (Unverified Allergy, Severe, Rash, 12/22/17) Reported Meds & Prescriptions Reported Meds & Active Scripts Active Zofran (Ondansetron HCl) 4 Mg Tab 4 Mg PO Q12HR PRN Lopressor (Metoprolol Tartrate) 50 Mg Tab 50 Mg PO BID Adderall Xr 24 HR (Amphetamine/Dextroamphetamine) 30 Mg Cap 30 Mg PO DAILY Reported Benztropine (Benztropine Mesylate) 0.5 Mg Tab 0.5 Mg PO HS Risperdal (Risperidone) 0.5 Mg Tab 1 Mg PO HS Olanzapine 5 Mg Tab 5 Mg PO HS Ativan (Lorazepam) 1 Mg Tab 0.5-1 Mg PO BID PRN Tenormin (Atenolol) 100 Mg Tab 100 Mg PO DAILY Ergocalciferol 50,000 Unit Cap 50,000 Units PO WEEKLY [place] Carbonate 300 Mg Cap 300 Mg PO DAILY Olanzapine 20 Mg Tab 20 Mg PO HS Review of Systems Except as stated in HPI: all other systems reviewed are Neg Physical Exam Narrative GENERAL: Well-nourished, well-developed female no acute distress. Afebrile. Ambulatory. SKIN: Focused skin assessment warm/dry. HEAD: Normocephalic. EYES: No scleral icterus. No injection or drainage. NECK: Supple, trachea midline. No JVD or lymphadenopathy. CARDIOVASCULAR: Regular rate and rhythm without murmurs, gallops, or rubs. RESPIRATORY: Breath sounds equal bilaterally. No accessory muscle use. PSYCHIATRIC: No delusional thought processes. No hallucinations. Calm during examination. Data Data Last Documented VS Vital Signs Date Time Temp Pulse Resp B/P (MAP) Pulse Ox O2 Delivery O2 Flow Rate FiO2 12/22/17 11:13 99.0 84 18 113/82 (92) 97 Room Air Orders Orders Complete Blood Count With Diff (12/22/17 11:08) Comprehensive Metabolic Panel (12/22/17 11:08) Thyroid Stimulating Hormone (12/22/17 11:08) Ed Urine Pregnancytest Poc (12/22/17 11:08) Psych Screen (12/22/17 11:08) Drug Screen, Random Urine (12/22/17 11:08) Alcohol (Ethanol) (12/22/17 11:08) Salicylates (Aspirin) (12/22/17 11:08) Tylenol (Acetaminophen) (12/22/17 11:08) Lorazepam (Ativan) (12/22/17 12:15) Acetaminophen (Tylenol) (12/22/17 12:15) Labs Laboratory Tests Test 12/22/17 11:33 White Blood Count 8.5 TH/MM3 Red Blood Count 4.03 MIL/MM3 Hemoglobin 13.4 GM/DL Hematocrit 38.9 % Mean Corpuscular Volume 96.6 FL Mean Corpuscular Hemoglobin 33.2 PG Mean Corpuscular Hemoglobin Concent 34.4 % Red Cell Distribution Width 14.2 % Platelet Count 242 TH/MM3 Mean Platelet Volume 9.1 FL Neutrophils (%) (Auto) 64.8 % Lymphocytes (%) (Auto) 28.7 % Monocytes (%) (Auto) 4.9 % Eosinophils (%) (Auto) 0.8 % Basophils (%) (Auto) 0.8 % Neutrophils # (Auto) 5.5 TH/MM3 Lymphocytes # (Auto) 2.4 TH/MM3 Monocytes # (Auto) 0.4 TH/MM3 Eosinophils # (Auto) 0.1 TH/MM3 Basophils # (Auto) 0.1 TH/MM3 CBC Comment DIFF FINAL Differential Comment Blood Urea Nitrogen 11 MG/DL Creatinine 0.73 MG/DL Random Glucose 93 MG/DL Total Protein 8.0 GM/DL Albumin 4.4 GM/DL Calcium Level 9.1 MG/DL Alkaline Phosphatase 68 U/L Aspartate Amino Transf (AST/SGOT) 21 U/L Alanine Aminotransferase (ALT/SGPT) 18 U/L Total Bilirubin 0.3 MG/DL Sodium Level 138 MEQ/L Potassium Level 4.0 MEQ/L Chloride Level 107 MEQ/L Carbon Dioxide Level 20.1 MEQ/L Anion Gap 11 MEQ/L Estimat Glomerular Filtration Rate 91 ML/MIN Thyroid Stimulating Hormone 3rd Gen 2.650 uIU/ML Salicylates Level 3.9 MG/DL Urine Opiates Screen NEG Acetaminophen Level LESS THAN 2.0 MCG/ML Urine Barbiturates Screen NEG Urine Amphetamines Screen POS Urine Benzodiazepines Screen NEG Urine Cocaine Screen NEG Urine Cannabinoids Screen NEG Ethyl Alcohol Level LESS THAN 3 MG/DL MDM Medical Decision Making Medical Screen Exam Complete: Yes Emergency Medical Condition: Yes Medical Record Reviewed: Yes Differential Diagnosis Psychosis, suicidal ideation, bipolar disorder, borderline personality disorder Narrative Course 37-year-old female presents to the emergency room under Adams act for suicidal ideation. She denies suicidal or homicidal ideation at this time. States her psychiatrist called the break out man because she asked for medication adjustment this morning. Patient is cantankerous and aggressive in ED. She is throwing items in her room and trying to run out the door. She is initially noncooperative with nurse. She was given Ativan and Tylenol for headache. Physical exam is unremarkable. CBC, CMP are unremarkable. Drug screen is negative except for amphetamine. Vital signs stable. She is medically cleared for psychiatric evaluation. Condition: Stable Wendy Torres Dec 22, 2017 12:18
[2017-12-22] MEDS ORDERED: diphenhydrAMINE HCL 50 MG/ML VIAL IM ONE (17:30)
[2017-12-22] MEDS ORDERED: OLANZapine IM 10 MG VIAL IM ONE (17:30)
[2017-12-22 17:57] VITALS: BP 112/60; PULSE 88; RESP 18; O2SAT 100
[2017-12-23 02:33] VITALS: BP 94/62; PULSE 76; RESP 17; O2SAT 96
[2017-12-23] MEDS ORDERED: ACETAMINOPHEN 325 MG TAB PO ONE (08:15)
--- NOTE | 2017-12-23 08:52 | PD ---
Physical Exam Date Seen by Provider: Dec 23, 2017 Time Seen by Provider: 08:50 Narrative 37-year-old female presents emergency department under the Adams act. She was medically cleared for psychiatric evaluation. Patient is seen by psychiatric services and felt to be stable for discharge. Patient remains medically stable at this time. Patient is given a note to return to work. Psychiatric follow- up is as per psychiatric note. Data Data Last Documented VS Vital Signs Date Time Temp Pulse Resp B/P (MAP) Pulse Ox O2 Delivery O2 Flow Rate FiO2 12/23/17 02:33 76 17 94/62 (73) 96 Room Air 12/22/17 11:13 99.0 Orders Orders Complete Blood Count With Diff (12/22/17 11:08) Comprehensive Metabolic Panel (12/22/17 11:08) Thyroid Stimulating Hormone (12/22/17 11:08) Ed Urine Pregnancytest Poc (12/22/17 11:08) Psych Screen (12/22/17 11:08) Drug Screen, Random Urine (12/22/17 11:08) Alcohol (Ethanol) (12/22/17 11:08) Salicylates (Aspirin) (12/22/17 11:08) Tylenol (Acetaminophen) (12/22/17 11:08) Lorazepam (Ativan) (12/22/17 12:15) Acetaminophen (Tylenol) (12/22/17 12:15) Diet Regular Basic (12/22/17 Lunch) Diet Regular Basic (12/22/17 Dinner) Restraints Violent (12/22/17 17:15) Olanzapine Inj (Zyprexa Inj) (12/22/17 17:30) Diphenhydramine Inj (Benadryl Inj) (12/22/17 17:30) Diet Regular Basic (12/23/17 Breakfast) Acetaminophen (Tylenol) (12/23/17 08:15) Labs Laboratory Tests Test 12/22/17 11:33 White Blood Count 8.5 TH/MM3 Red Blood Count 4.03 MIL/MM3 Hemoglobin 13.4 GM/DL Hematocrit 38.9 % Mean Corpuscular Volume 96.6 FL Mean Corpuscular Hemoglobin 33.2 PG Mean Corpuscular Hemoglobin Concent 34.4 % Red Cell Distribution Width 14.2 % Platelet Count 242 TH/MM3 Mean Platelet Volume 9.1 FL Neutrophils (%) (Auto) 64.8 % Lymphocytes (%) (Auto) 28.7 % Monocytes (%) (Auto) 4.9 % Eosinophils (%) (Auto) 0.8 % Basophils (%) (Auto) 0.8 % Neutrophils # (Auto) 5.5 TH/MM3 Lymphocytes # (Auto) 2.4 TH/MM3 Monocytes # (Auto) 0.4 TH/MM3 Eosinophils # (Auto) 0.1 TH/MM3 Basophils # (Auto) 0.1 TH/MM3 CBC Comment DIFF FINAL Differential Comment Blood Urea Nitrogen 11 MG/DL Creatinine 0.73 MG/DL Random Glucose 93 MG/DL Total Protein 8.0 GM/DL Albumin 4.4 GM/DL Calcium Level 9.1 MG/DL Alkaline Phosphatase 68 U/L Aspartate Amino Transf (AST/SGOT) 21 U/L Alanine Aminotransferase (ALT/SGPT) 18 U/L Total Bilirubin 0.3 MG/DL Sodium Level 138 MEQ/L Potassium Level 4.0 MEQ/L Chloride Level 107 MEQ/L Carbon Dioxide Level 20.1 MEQ/L Anion Gap 11 MEQ/L Estimat Glomerular Filtration Rate 91 ML/MIN Thyroid Stimulating Hormone 3rd Gen 2.650 uIU/ML Salicylates Level 3.9 MG/DL Urine Opiates Screen NEG Acetaminophen Level LESS THAN 2.0 MCG/ML Urine Barbiturates Screen NEG Urine Amphetamines Screen POS Urine Benzodiazepines Screen NEG Urine Cocaine Screen NEG Urine Cannabinoids Screen NEG Ethyl Alcohol Level LESS THAN 3 MG/DL [facility] Medical Record Reviewed: Yes Supervised Visit with INOCENCIO: Yes Differential Diagnosis 37-year-old female presents emergency department under the Adams act. She was medically cleared for psychiatric evaluation. Patient is seen by psychiatric services and felt to be stable for discharge. Patient remains medically stable at this time. Patient is given a note to return to work. Psychiatric follow- up is as per psychiatric note. Patient Instructions: General Instructions Departure Forms: Work Release Enter return to work date: Dec 23, 2017 Disposition: 01 DISCHARGE HOME Condition: Stable Micah Mendenhall Dec 23, 2017 08:52
--- NOTE | 2017-12-23 15:35 | PD.PSY.CON ---
Provisional Diagnosis Admission Date History of Present Illness Service Psychiatry Consult Requested By ER Reason for Consult psychiatry Primary Care Physician Liya Waters MD HPI Patient was seen this morning at 7:30 AM. This is a late entry. The patient is a 37 year-old woman, domiciled with her father, single , employed as a medical laboratory assistant, with psychiatric history of ADHD, bipolar disorder, borderline personality disorder, multiple psychiatric hospitalizations , last hospitalization was in 2016, multiple suicidal attempts, poor impulse control, aggressive behavior, she reports that she is in Adderall 30 mg daily, olanzapine 0.5 mg twice a day, prescribed by Dr. Hernández, no significant medical history, who presents to the emergency room under [place] act initiated by [employer]. Patient called her psychiatrist's office this morning to ask for medication adjustment because she was having episodes of rage and depression. Shortly afterward, the director business integration showed up to her house and [place] acted her. Patient denies suicidal or homicidal ideations at this time. States it was a miscommunication and that she did not expect her psychiatrist to call the director business integration on her. States this morning she was extremely angry, trashing her house and throwing glass everywhere but now she is calm down. Only other history of tachycardia for which she takes atenolol. The patient denies depressive symptoms, she denies suicidal and homicidal ideation, she denies visual and auditory hallucinations. Past Family Social History Coded Allergies: Opioids - Morphine Analogues (Unverified Allergy, Severe, 12/22/17) Opioids-Meperidine and Related (Unverified Allergy, Severe, 12/22/17) Opioids-Methadone and Related (Unverified Allergy, Severe, 12/22/17) Sulfa (Sulfonamide Antibiotics) (Unverified Allergy, Severe, RASH-HIVES, ) aripiprazole (Unverified Allergy, Severe, Confusion, 12/22/17) citalopram (Unverified Allergy, Severe, 12/22/17) duloxetine (Unverified Allergy, Severe, 12/22/17) fluvoxamine (Unverified Allergy, Severe, 12/22/17) morphine (Unverified Allergy, Severe, "ILL", 12/22/17) paroxetine (Unverified Allergy, Severe, 12/22/17) sertraline (Unverified Allergy, Severe, 12/22/17) venlafaxine (Unverified Allergy, Severe, 12/22/17) ziprasidone (Unverified Allergy, Severe, Rash, 12/22/17) Active Scripts Ondansetron (Zofran) 4 Mg Tab, 4 MG PO Q12HR Y for NAUSEA OR VOMITING, #10 TAB 0 Refills Prov:Gerry Harris MD 12/03/17 Metoprolol Tartrate (Lopressor) 50 Mg Tab, 50 MG PO BID for Anxiety and/or Insomnia, #10 TAB 1 Refill Prov:Manpreet Murray MD 01/26/17 Amphetamine-Dextroamphetamine ER 24 HR (Adderall Xr 24 HR) 30 Mg Cap, 30 MG PO DAILY for ADHD, #7 CAP Prov:Manpreet Murray MD 01/26/17 Reported Medications Benztropine (Benztropine) 0.5 Mg Tab, 0.5 MG PO HS, #30 TAB 0 Refills 12/22/17 Risperidone (Risperdal) 0.5 Mg Tab, 1 MG PO HS, #30 TAB 0 Refills 12/22/17 Olanzapine (Olanzapine) 5 Mg Tab, 5 MG PO HS, #30 TAB 0 Refills 12/22/17 Lorazepam (Ativan) 1 Mg Tab, 0.5-1 MG PO BID Y for ANXIETY, TAB 0 Refills 12/02/17 Atenolol (Tenormin) 100 Mg Tab, 100 MG PO DAILY for Blood Pressure Management, # 30 TAB 0 Refills 12/02/17 Ergocalciferol (Ergocalciferol) 50,000 Unit Cap, 91077 UNITS PO WEEKLY for Nutritional Supplement, #30 CAP 0 Refills 12/02/17 [place] Carbonate ([place] Carbonate) 300 Mg Cap, 300 MG PO DAILY, CAP 0 Refills 12/02/17 Olanzapine (Olanzapine) 20 Mg Tab, 20 MG PO HS, #30 TAB 0 Refills 12/02/17 Physical Exam Vital Signs Vital Signs Date Time Temp Pulse Resp B/P (MAP) Pulse Ox O2 Delivery O2 Flow Rate FiO2 12/23/17 09:06 12/23/17 02:33 76 17 96 Room Air 12/22/17 11:13 99.0 Mental Status Examination Appearance: Appropriate Consciousness: Alert Orientation: x4 Motor Activity: Normal gait Speech: Unremarkable Language: Adequate Fund of Knowledge: Adequate Attention and Concentration: Adequate Memory: Unremarkable Mood: Appropriate Affect: Appropriate Thought Process & Associations: Intact Thought Content: Appropriate Hallucination Type: None Delusion Type: None Suicidal Ideation: No Suicidal Plan: No Suicidal Intention: No Homicidal Ideation: No Homicidal Plan: No Homicidal Intention: No Insight: Adequate Judgment: Adequate Assessment & Plan Problem List: (1) Borderline personality disorder ICD Codes: F60.3 - Borderline personality disorder Status: Acute Assessment & Plan Estimated LOS: Sage Patterson MD Dec 23, 2017 15:35
== END 2017-12-23 09:12 | disposition home or self-care (01) ==
LOC: NEPD 10:50 → NEPJ 12-23 09:12
DX: F31.9 Bipolar disorder, unspecified (principal); Z79.899 Other long term (current) drug therapy
CPT/HCPCS: 80053; 80307; 84443; 84703; 85025; 96372; 99284; J1200